=== PATIENT | female | born 1960 | race Caucasian/White ===

== ENCOUNTER 2017-02-26 10:04 | Emergency (ER) | payer OTHER ==
[~2017-02-26] VITALS: Ht 154.9 cm; Wt 68.0 kg
[~2017-02-26 10:04] MED LIST: CIPR500T4 PO; HYDR-762 PO; METR500T PO
[2017-02-26 10:07] VITALS: Ht 154.9 cm; Wt 68.0 kg
[2017-02-26] MEDS ORDERED: HYDROCODONE/APAP (5/325) TAB PO ONE (10:30)
--- NOTE | 2017-02-26 10:45 | ERD ---
ER Documentation Chief Complaint Date/Time DATE: 02/26/17 TIME: 10:40 Chief Complaint facial laceration HPI Is a 56-year-old female who presents the emergency department today for a facial laceration. Patient states that she was running to the bathroom and stated that she tripped and fell. States she is not sure what she hit her head on but that she has a headache. States she thinks she hit her head on the toilet bowl. Denies any loss of consciousness, nausea or vomiting. States she has a history of diabetes. States that her hands feel like they are "burning". Patient is a smoker. ROS All systems reviewed and are negative except as per history of present illness. Medications Home Meds Active Scripts Ibuprofen* (Motrin*) 600 Mg Tab, 600 MG PO Q6, #30 TAB Prov:NOEMI JOHN PA-C 02/26/17 Hydrocodone/Acetaminophen (Herriman 5-325 Tablet) 1 Each Tablet, 1 TAB PO Q6H Y for PAIN, #7 TAB Prov:NOEMI JOHN PA-C 02/26/17 Hydrocodone Bit-Acetaminophen* (Herriman*) 10-325 Mg Tablet, 1 TAB PO Q6 Y for PAIN , #20 TAB Prov:ANGELINA VIVEROS 06/08/15 Metronidazole* (Flagyl*) 500 Mg Tablet, 500 MG PO TID for 7 Days, TAB Prov:ANGELINA VIVEROS S. 06/08/15 Ciprofloxacin Hcl* (Ciprofloxacin Hcl*) 500 Mg Tablet, 500 MG PO BID for 7 Days , TAB Prov:ANGELINA VIVEROS 06/08/15 Allergies Allergies: Coded Allergies: No Known Allergy (Unverified , 06/07/15) PMhx/Soc History of Surgery: Yes (C-SECTIONS) Anesthesia Reaction: No Hx Neurological Disorder: No Hx Respiratory Disorders: No Hx Cardiac Disorders: Yes (HIGH CHOLESTEROL) Hx Psychiatric Problems: No Hx Miscellaneous Medical Probl: Yes (DM) Hx Alcohol Use: No Hx Substance Use: No Hx Tobacco Use: No Smoking Status: Never smoker Physical Exam Vitals Vital Signs Date Time Temp Pulse Resp B/P Pulse Ox O2 Delivery O2 Flow Rate FiO2 02/26/17 10:07 98.2 95 17 139/72 96 Physical Exam Const: NAD Head: 3 x 2 cm laceration right side of face and cheek in V shape with flap. Bleeding well controlled Eyes: Normal Conjunctiva. PERRLA. EOM intact. ENT: Normal External Ears, Nose and Mouth. No epistaxis. No hemotympanum. Tenderness palpation right side of face and mandible Neck: Full range of motion..~ No meningismus. Resp: Clear to auscultation bilaterally Cardio: Regular rate and rhythm, no murmurs Abd: Soft, non tender, non distended. Normal bowel sounds Skin: 3 x 2 cm laceration right side of face and cheek in V shape with flap. Bleeding well controlled Back: No midline or flank tenderness Ext: No cyanosis, or edema. Neur: Awake and alert Psych: Normal Mood and Affect Results 24 hrs Laboratory Tests Test 02/26/17 10:50 02/26/17 13:18 Bedside Urine pH (LAB) 5.5 Bedside Urine Protein (LAB) Negative Bedside Urine Glucose (UA) 0.50% Bedside Urine Ketones (LAB) Negative Bedside Urine Blood Trace-intact Bedside Urine Nitrite (LAB) Negative Bedside Urine Leukocyte Esterase (L Negative Bedside Glucose 289mg/dL Current Medications Medications (Trade) Dose Ordered Sig/Marino Route PRN Reason Start Time Stop Time Status Last Admin Dose Admin Acetaminophen/ Hydrocodone Bitart (Herriman (5/325)) 1 tab ONCE ONCE PO 02/26/17 10:30 02/26/17 10:32 DC 02/26/17 10:47 Lidocaine/ Epinephrine (Xylocaine 2%/ Epi (Mdv) 20 ml) 20 ml ONCE ONCE INJ 02/26/17 11:00 02/26/17 11:01 DC DIAGNOSTIC IMAGING REPORT Patient: GUNJAN FIELDS : 1960 Age: 56 Sex: F MR #: [id number] DOS: 02/26/17 0000 Ordering MD: NOEMI JOHN PA-C Location: [facility] Room/Bed: PROCEDURE: CT Brain without contrast. CLINICAL INDICATION: 56-year-old female with history of trauma; fall. TECHNIQUE: A CT of the brain was performed on a Escoto [address] scanner utilizing a low dose technique with axial imaging from the skull base through the vertex without IV contrast. Multiplanar reformatted images were made. Images were reviewed on a PACS workstation. The CTDIvol is 44 mGy and the DLP is 720 mGycm. One or more of the following dose reduction techniques were used: - Automated exposure control. - Adjustment of the mA and/or kV according to patient size. Use of iterative reconstruction technique. COMPARISON: None FINDINGS: The fourth ventricle is normal in size. The third and lateral ventricles are normal in size and configuration. The brain parenchyma is normal. The visible portions of the globes and extraocular muscles are normal. The paranasal sinuses are clear. The mastoid air cells and internal auditory canals are normal. The bony calvarium is intact. There are vascular calcifications in the cavernous and supracavernous portions of the internal carotid arteries. IMPRESSION: 1. Negative CT scan of the brain without contrast. 2. There are vascular calcifications in the cavernous and supracavernous portions of the internal carotid arteries. RPTAT:AAJJ Physician Lynn Date Time Electronically viewed and signed by Tyrone Lowe Physician on 02/26/2017 11:11 JM/ CC: NOEMI JOHN PA-C DIAGNOSTIC IMAGING REPORT Patient: GUNJAN FIELDS : 1960 Age: 56 Sex: F MR #: [id number] DOS: 02/26/17 0000 Ordering MD: NOEMI JOHN PA-C Location: [facility] Room/Bed: PROCEDURE: CT facial bones. CLINICAL INDICATION: Trauma; fall. TECHNIQUE: A CT of the facial bones was performed on a high-resolution CT scanner utilizing high-resolution axial images without contrast. Sagittal, coronal, and multiplanar reformatted images were made. Additionally, 3-D reformatted images were made. The CTDIvol is 44 mGy and the DLP is 720 mGy-cm. One or more of the following dose reduction techniques were used: - Automated exposure control. - Adjustment of the mA and/or kV according to patient size. Use of iterative reconstruction technique. COMPARISON: None. FINDINGS: There is subcutaneous emphysema associated with a laceration and soft tissue swelling lateral to the right side of the mandible. The lower medial right incisor tooth is absent. There is a apical periodontitis involving the upper right lateral incisor tooth. There are multiple dental caries. The mandible is intact. The visible cervical vertebra are intact. There are degenerative changes in the cervical spine. The pterygoid plates and zygomatic arches are intact. The nasal bones are intact. The nasal septum and nasal turbinates are normal. The globes and extraocular muscles are normal. The paranasal sinuses are clear. The intrinsic musculature of the tongue and submandibular glands are unremarkable. The epiglottis and glossoepiglottic fold are normal. The parapharyngeal vascular spaces are normal. The parotid glands are normal as visualized. The base of the skull and mastoid air cells are clear. The globes and extraocular muscles are normal. The optic nerves are symmetric. The orbital rims are intact. The visible portions of the brain parenchyma are normal. There is some soft tissue swelling adjacent to the right frontal bone. IMPRESSION: 1. There is subcutaneous emphysema soft tissue swelling on the right side of the mandible. No acute mandibular fracture is identified. 2. Patient's missing several teeth and has multiple dental caries. There is periapical periodontitis involving the upper right lateral incisor tooth. 3. Osteoarthritis of the cervical spine. 4. No acute facial fracture is identified. RPTAT:AAJJ Physician Lynn Date Time Electronically viewed and signed by Physician Lynn on 02/26/2017 11:22 JM/ CC: NOEMI JOHN PA-C DIAGNOSTIC IMAGING REPORT Patient: GUNJAN FIELDS : 1960 Age: 56 Sex: F MR #: [id number] DOS: 02/26/17 0000 Ordering MD: NOEMI JOHN PA-C Location: [facility] Room/Bed: PROCEDURE: XR bilateral hands. CLINICAL INDICATION: Trauma due to a fall. Bilateral hand pain. TECHNIQUE: Three views of each hand. Frontal, lateral, and oblique images of the right and left hand were obtained. Total of 6 views. COMPARISON: No prior studies are available for comparison. FINDINGS: There is no fracture or dislocation. The soft tissues are normal. Articular surfaces are intact. There is no lytic or blastic lesion. There is no radiopaque foreign body. IMPRESSION: 1. Unremarkable images of the right and left hand. RPTAT: QQ .Paul Rodrigez MD, Date Time Electronically viewed and signed by .Paul Rodrigez MD, MD on 02/26/2017 13:28 .R/ CC: NOEMI JOHN PA-C DIAGNOSTIC IMAGING REPORT Patient: GUNJAN FIELDS : 1960 Age: 56 Sex: F MR #: [id number] DOS: 02/26/17 0000 Ordering MD: NOEMI JOHN PA-C Location: [facility] Room/Bed: PROCEDURE: CT Cervical Spine without contrast. CLINICAL INDICATION: trauma, fall TECHNIQUE: Multiple axial cuts at 2 mm intervals through the cervical spine with coronal and sagittal reformats were obtained without contrast. COMPARISON: No prior studies are available for comparison. FINDINGS: The mastoid air cells are clear. The base of the skull, C1 and C2 are intact. There are degenerative changes around the atlanto-axial joint. C2-3: The intervertebral disk space neural canal and nerve root foramina are normal. No disk bulge or herniations identified. The articular facets and C2 spinous process are normal. A ventral osteophyte is noted off the inferior endplate of C3. C3 is intact. C3-4: There is ventral spondylosis. There is a mild midline disk bulge. The neural canal and nerve root foramina are unremarkable. The articular facets are normal. C4 is intact. C4-5: There is a bony right nerve root canal stenosis. There is ventral spondylosis with disk space narrowing. A 2.9 mm AP disk osteophyte complex narrows the right nerve root canal resulting in a bony right C4-5 nerve root canal stenosis. The left nerve root canal is unremarkable. C5 is intact. C5-6: There is ventral spondylosis with disk space narrowing. There is a 3.5 mm AP dorsal disk osteophyte complex. There are small bony osteophytes causing mild narrowing of the left nerve root canal. The right nerve root canal is normal. C6 is intact. There are ventral osteophytes off of C6. C6-7: There is disk space narrowing and ventral spondylosis. There is a mild central and paracentral 2.6 mm AP disk osteophyte complex. The nerve root foramina are patent bilaterally. The articular facets are normal. C7 is intact. C7-T1: There is ventral spondylosis with mild disk space narrowing. The neural canal and nerve root foramina are unremarkable. There are ventral osteophytes off of T1. T1 is intact. The other visible thoracic vertebra intact. A 3.5 mm AP central and paracentral disk osteophyte complex is noted at T1-2. A 3.2 mm AP central disk osteophyte complex is noted at C2-3. The ribs are intact. The great vessels of the superior mediastinum are normal. The pulmonary vasculature and lung ayala are normal. The thyroid gland and vocal cords are normal. The piriform sinuses, submandibular glands and intrinsic musculature of the tongue are normal. The parotid glands are unremarkable. No enlarged cervical lymph nodes are identified. IMPRESSION: 1. Osteoarthritis of the cervical spine. 2. No evidence of acute cervical spine fracture or cervical instability. Physician Lynn Date Time Electronically viewed and signed by Physician Lynn on 02/26/2017 13:31 VU/ CC: NOEMI JOHN PA-C/[facility] This 56-year-old female who presents the emergency department today for right- sided facial laceration and a headache after sustaining a fall earlier today. Patient indicated that she has running to the bathroom when she thinks that she tripped and fell however patient was somewhat unsure what she hit her face on or what exactly happened. She denied any loss of consciousness however given patient's age and headache and facial trauma I did obtain a head CT and facial bone CT as well as an Accu-Chek and EKG given patient's complaints of numbness and tingling in her fingers and swelling EKG read and interpreted by Dr. Byrne. Rate [address] elevation. No QT prolongation. Normal sinus rhythm however cannot rule out anterior infarct of age undetermined. No evidence of acute NM. PE, pericarditis UA shows glucose otherwise negative for infection Accu-Chek is [address] noncontrast is negative. However does show vascular calcifications in the cavernous and supracavernous portions of the internal carotid arteries Facial bone CT shows subcutaneous emphysema soft tissue swelling the right side of mandible. There is no acute mandibular fracture. Patient is missing several teeth and has multiple dental caries. There is periapical periodontitis. There is osteoarthritis of the cervical spine. There is no acute facial fracture identified. Cervical spine CT shows osteoarthritis. There is no evidence of acute cervical spine fracture or instability. Patient was continued to complain of bilateral pain tingling and swelling and therefore I ordered bilateral hand images that were unremarkable. There is no acute fracture or dislocation. Patient is tingling in her fingers may be related to diabetic neuropathy versus degenerative disc disease in her neck. I have explained this to the patient. Patient was given Herriman here in the emergency department. I did explain to the patient that she was going to need sutures on her face. Explained the risks and benefits of the procedure and patient agreed to proceed. Patient tolerated the procedure well and there were no complications. The wound was cleaned in the usual sterile fashion. Laceration Repair by me: Anesthesia: 1% lidocaine with epi locally 3 cc Location: Right side of face/cheek Tendon/Joint/Nerves: No injury Foreign body: None detected after copious irrigation and exploration Technique: 10 simple Interrupted Sutures 6-0 Ethilon Complexity: No subcutaneous sutures/mucosal repair/ edge excision Post Closure Length: 6 cm Patient's bleeding was easily controlled in the department and there is no indication of anemia. No evidence of compartment syndrome, neurologic injury, vascular injury, open joint, tendon laceration, or foreign body. Patient is appropriate for outpatient follow up. 48 hour wound check. Scar minimization instructions given. She will be given a prescription for Herriman, Motrin. Wound check in 48 hours. Suture removal in 5-7 days per At this time the patient is stable for discharge and outpatient management. Patient should follow up with their PCP in the next 1-2 days. They may return to the emergency department sooner for any persistent or worsening of symptoms. Patient and daughter understood and agreed with the plan. Discussed the patient with Dr. Byrne and he is in agreement with the plan. Departure Diagnosis: Primary Impression: Laceration Additional Impression: Fall Encounter type: initial encounter Qualified Code: W19.XXXA - Fall, initial encounter Condition: Fair NOEMI JOHN PA-C February 26, 2017 10:45
[2017-02-26 10:49] LABS: URINE BLOOD (Dip) POC Trace-intact (NEGATIVE)
[2017-02-26] MEDS ORDERED: LIDOCAINE 2%/EPI (MDV) 20ML INJ INJ ONE (11:00)
--- NOTE | 2017-02-26 11:11 | RADRPT ---
PROCEDURE: CT Brain without contrast. CLINICAL INDICATION: 56-year-old female with history of trauma; fall. TECHNIQUE: A CT of the brain was performed on a Escoto [address] scanner utilizing a low do se technique with axial imaging from the skull base through the vertex without IV contrast. Multipl hesham reformatted images were made. Images were reviewed on a PACS workstation. The CTDIvol is 44 m Gy and the DLP is 720 mGycm. One or more of the following dose reduction techniques were used: - Automated exposure control. - Adjustment of the mA and/or kV according to patient size. Use of iterative reconstruction technique. COMPARISON: None FINDINGS: The fourth ventricle is normal in size. The third and lateral ventricles are normal in size and con figuration. The brain parenchyma is normal. The visible portions of the globes and extraocular muscles are normal. The paranasal sinuses are cl ear. The mastoid air cells and internal auditory canals are normal. The bony calvarium is intact. There are vascular calcifications in the cavernous and supracavernous portions of the internal carot id arteries. IMPRESSION: 1. Negative CT scan of the brain without contrast. 2. There are vascular calcifications in the cavernous and supracavernous portions of the internal ca rotid arteries. RPTAT:AAJJ Physician Lynn Date Time Electronically viewed and signed by Physician Lynn on 02/26/2017 11:11 VU/
--- NOTE | 2017-02-26 11:22 | RADRPT ---
PROCEDURE: CT facial bones. CLINICAL INDICATION: Trauma; fall. TECHNIQUE: A CT of the facial bones was performed on a high-resolution CT scanner utilizing high-r esolution axial images without contrast. Sagittal, coronal, and multiplanar reformatted images were made. Additionally, 3-D reformatted images were made. The CTDIvol is 44 mGy and the DLP is 720 mGy -cm. One or more of the following dose reduction techniques were used: - Automated exposure control. - Adjustment of the mA and/or kV according to patient size. Use of iterative reconstruction technique. COMPARISON: None. FINDINGS: There is subcutaneous emphysema associated with a laceration and soft tissue swelling lateral to the right side of the mandible. The lower medial right incisor tooth is absent. There is a apical jenny odontitis involving the upper right lateral incisor tooth. There are multiple dental caries. The m andible is intact. The visible cervical vertebra are intact. There are degenerative changes in the cervical spine. The pterygoid plates and zygomatic arches are intact. The nasal bones are intact. The nasal septum and nasal turbinates are normal. The globes and extraocular muscles are normal. The paranasal sinuses are clear. The intrinsic musculature of the tongue and submandibular glands are unremarkable. The epiglottis a nd glossoepiglottic fold are normal. The parapharyngeal vascular spaces are normal. The parotid gla nds are normal as visualized. The base of the skull and mastoid air cells are clear. The globes and extraocular muscles are normal . The optic nerves are symmetric. The orbital rims are intact. The visible portions of the brain p arenchyma are normal. There is some soft tissue swelling adjacent to the right frontal bone. IMPRESSION: 1. There is subcutaneous emphysema soft tissue swelling on the right side of the mandible. No acut e mandibular fracture is identified. 2. Patient's missing several teeth and has multiple dental caries. There is periapical periodonti tis involving the upper right lateral incisor tooth. 3. Osteoarthritis of the cervical spine. 4. No acute facial fracture is identified. RPTAT:AAJJ Tyrone Lowe, Physician Date Time Electronically viewed and signed by Tyrone Lowe, Physician on 02/26/2017 11:22 VU/
--- NOTE | 2017-02-26 13:29 | RADRPT ---
PROCEDURE: XR bilateral hands. CLINICAL INDICATION: Trauma due to a fall. Bilateral hand pain. TECHNIQUE: Three views of each hand. Frontal, lateral, and oblique images of the right and left h and were obtained. Total of 6 views. COMPARISON: No prior studies are available for comparison. FINDINGS: There is no fracture or dislocation. The soft tissues are normal. Articular surfaces are intact. There is no lytic or blastic lesion. There is no radiopaque foreign body. IMPRESSION: 1. Unremarkable images of the right and left hand. RPTAT: QQ .Paul Rodrigez MD, MD Date Time Electronically viewed and signed by .Paul Rodrigez MD, on 02/26/2017 13:28 .R/
--- NOTE | 2017-02-26 13:32 | RADRPT ---
PROCEDURE: CT Cervical Spine without contrast. CLINICAL INDICATION: trauma, fall TECHNIQUE: Multiple axial cuts at 2 mm intervals through the cervical spine with coronal and sagit maryam reformats were obtained without contrast. COMPARISON: No prior studies are available for comparison. FINDINGS: The mastoid air cells are clear. The base of the skull, C1 and C2 are intact. There are degenerati ve changes around the atlanto-axial joint. C2-3: The intervertebral disk space neural canal and nerve root foramina are normal. No disk bulge or herniations identified. The articular facets and C2 spinous process are normal. A ventral osteo phyte is noted off the inferior endplate of C3. C3 is intact. C3-4: There is ventral spondylosis. There is a mild midline disk bulge. The neural canal and nerve root foramina are unremarkable. The articular facets are normal. C4 is intact. C4-5: There is a bony right nerve root canal stenosis. There is ventral spondylosis with disk space narrowing. A 2.9 mm AP disk osteophyte complex narrows the right nerve root canal resulting in a b angel right C4-5 nerve root canal stenosis. The left nerve root canal is unremarkable. C5 is intact. C5-6: There is ventral spondylosis with disk space narrowing. There is a 3.5 mm AP dorsal disk ost eophyte complex. There are small bony osteophytes causing mild narrowing of the left nerve root can al. The right nerve root canal is normal. C6 is intact. There are ventral osteophytes off of C6. C6-7: There is disk space narrowing and ventral spondylosis. There is a mild central and paracentr al 2.6 mm AP disk osteophyte complex. The nerve root foramina are patent bilaterally. The articula r facets are normal. C7 is intact. C7-T1: There is ventral spondylosis with mild disk space narrowing. The neural canal and nerve root foramina are unremarkable. There are ventral osteophytes off of T1. T1 is intact. The other visible thoracic vertebra intact. A 3.5 mm AP central and paracentral disk osteophyte com plex is noted at T1-2. A 3.2 mm AP central disk osteophyte complex is noted at C2-3. The ribs are intact. The great vessels of the superior mediastinum are normal. The pulmonary vascu lature and lung ayala are normal. The thyroid gland and vocal cords are normal. The piriform sinuses, submandibular glands and intrin sic musculature of the tongue are normal. The parotid glands are unremarkable. No enlarged cervica l lymph nodes are identified. IMPRESSION: 1. Osteoarthritis of the cervical spine. 2. No evidence of acute cervical spine fracture or cervical instability. Physician Lynn Date Time Electronically viewed and signed by Tyrone Lowe Physician on 02/26/2017 13:31 VU/
[2017-02-26] MEDS ORDERED: IBUP-1542 PO (13:58)
[2017-02-26] MEDS ORDERED: HYDR-906 PO (13:58)
== END 2017-02-26 14:17 | disposition home or self-care (01) ==
LOC: FTE 10:04
DX: S01.81XA Laceration without foreign body of other part of head, initial encounter (principal); E11.9 Type 2 diabetes mellitus without complications; R51 Headache; F17.210 Nicotine dependence, cigarettes, uncomplicated; M79.642 Pain in left hand; W01.0XXA Fall on same level from slipping, tripping and stumbling without subsequent striking against object, initial encounter; Y92.9 Unspecified place or not applicable
CPT/HCPCS: 12014; 70450; 70486; 72125; 73130; 81003; 82962; 93005; Z7502; Z7610

== ENCOUNTER 2017-02-28 08:50 | Emergency (ER) | payer OTHER ==
[~2017-02-28] VITALS: Wt 65.0 kg
[~2017-02-28 08:50] MED LIST changes: +HYDR-906 PO; +IBUP-1542 PO
--- NOTE | 2017-02-28 09:25 | ERD ---
ER Documentation Chief Complaint Date/Time DATE: 02/28/17 TIME: 09:22 Chief Complaint RIGHT SIDE FACIAL WOUND RECHECK . ONSET ABOUT 3 DAYS HPI This 56-year-old female who presents the emergency department today for a wound check of a laceration she sustained 2 days ago after a fall in the bathroom. Patient states she is taking her antibiotics as prescribed. Denies any fevers or chills. ROS All systems reviewed and are negative except as per history of present illness. Medications Home Meds Active Scripts Ibuprofen* (Motrin*) 600 Mg Tab, 600 MG PO Q6, #30 TAB Prov:NOEMI JOHN PA-C 02/26/17 Hydrocodone/Acetaminophen (Newberry 5-325 Tablet) 1 Each Tablet, 1 TAB PO Q6H Y for PAIN, #7 TAB Prov:NOEMI JOHN PA-C 02/26/17 Hydrocodone Bit-Acetaminophen* (Newberry*) 10-325 Mg Tablet, 1 TAB PO Q6 Y for PAIN , #20 TAB Prov:ANGELINA VIVEROS 06/08/15 Metronidazole* (Flagyl*) 500 Mg Tablet, 500 MG PO TID for 7 Days, TAB Prov:ANGELINA VIVEROS S. 06/08/15 Ciprofloxacin Hcl* (Ciprofloxacin Hcl*) 500 Mg Tablet, 500 MG PO BID for 7 Days , TAB Prov:ANGELINA VIVEROS 06/08/15 Allergies Allergies: Coded Allergies: No Known Allergy (Unverified , 06/07/15) PMhx/Soc History of Surgery: Yes (C-SECTIONS) Anesthesia Reaction: No Hx Neurological Disorder: No Hx Respiratory Disorders: No Hx Cardiac Disorders: Yes (HIGH CHOLESTEROL) Hx Psychiatric Problems: No Hx Miscellaneous Medical Probl: Yes (DM) Hx Alcohol Use: No Hx Substance Use: No Hx Tobacco Use: No Physical Exam Vitals Vital Signs Date Time Temp Pulse Resp B/P Pulse Ox O2 Delivery O2 Flow Rate FiO2 02/28/17 08:56 98.4 84 21 110/60 95 Physical Exam Const: No acute distress Head: Evidence of 10 sutures placed right side of face. No erythema or warmth. No purulent drainage. Eyes: Normal Conjunctiva ENT: Normal External Ears, Nose and Mouth. Neck: Full range of motion..~ No meningismus. Resp: Clear to auscultation bilaterally Cardio: Regular rate and rhythm, no murmurs Skin: Evidence of 10 sutures placed right side of face. No erythema or warmth. No purulent drainage. Neur: Awake and alert Psych: Normal Mood and Affect Procedures/MDM This 56-year-old female who presents the emergency department today for wound check of a laceration she sustained 2 days ago after a fall in the bathroom. I see this patient back in follow-up today after applying 10 sutures to the right to the patient's face. Patient is afebrile and otherwise well-appearing. She has been taking her antibiotics. Wound appears to be healing well and is well approximated. There is no erythema or warmth. There is no purulent drainage. Patient was instructed to return in 3-5 days for suture removal. She was instructed to continue taking her antibiotics as prescribed. Patient was again instructed to stop smoking cigarettes. At this time the patient is stable for discharge and outpatient management. Patient should follow up with their PCP in the next 1-2 days. They may return to the emergency department sooner for any persistent or worsening of symptoms. Patient understood and agreed with the plan. Departure Diagnosis: Primary Impression: Encounter for wound re-check Condition: Fair Patient Instructions: Wound Check, Lac F/U (No Infection) Referrals: your PCP Additional Instructions: Llame al doctor LENARD y rachel larry PJ PARA DENTRO DE 1-2 SU.Dgale a la secretaria que nosotros le instruimos hacer esta pj.Avise o llame si meléndez condicin se empeora antes de la pj. Regresa aqui si peor o no mejor. Keep wound clean and dry Continue taking antibiotics as prescribed Suture removal in 3-5 days NOEMI JOHN PA-C February 28, 2017 09:25
== END 2017-02-28 09:28 | disposition home or self-care (01) ==
LOC: FTE 08:50
DX: Z48.01 Encounter for change or removal of surgical wound dressing (principal); E11.9 Type 2 diabetes mellitus without complications
CPT/HCPCS: 99281

== ENCOUNTER 2017-03-04 19:37 | Emergency (ER) | payer SELFPAY ==
[2017-03-05] MEDS ORDERED: BACITUD TOP (11:47)
== END 2017-03-04 19:58 | disposition left against medical advice (07) ==
LOC: E/R 19:37
DX: Z53.21 Procedure and treatment not carried out due to patient leaving prior to being seen by health care provider (principal)

== ENCOUNTER 2017-03-05 11:07 | Emergency (ER) | payer OTHER ==
[~2017-03-05] VITALS: Ht 165.1 cm; Wt 74.0 kg
[2017-03-05 11:12] VITALS: Ht 165.1 cm; Wt 74.0 kg
[2017-03-05] MEDS ORDERED: BACITUD TOP (11:47)
--- NOTE | 2017-03-05 12:40 | ERD ---
ER Documentation Chief Complaint Date/Time DATE: 03/05/17 TIME: 12:33 Chief Complaint suture removal from face HPI 56 year old female patient with no significant past medical history presents to the ED for a suture removal for a facial laceration she sustained about 7 days ago. She initially was running in the bathroom and stated that she tripped and fell. States that she hit her head but denies any loss of consciousness. Denies any headache, nausea, vomiting, dizziness, fever, numbness or tingling. ROS All systems reviewed and are negative except as per history of present illness. Medications Home Meds Active Scripts Bacitracin* (Bacitracin Oint (UD)*) 1 Applic Oint, 1 APPLIC TOP ONCE, #10 PKT APPLY TO Prov:CONCHITA WILLARD PA-C 03/05/17 Ibuprofen* (Motrin*) 600 Mg Tab, 600 MG PO Q6, #30 TAB Prov:NOEMI JOHN PA-C 02/26/17 Hydrocodone/Acetaminophen (Baker 5-325 Tablet) 1 Each Tablet, 1 TAB PO Q6H Y for PAIN, #7 TAB Prov:NOEMI JOHN PA-C 02/26/17 Hydrocodone Bit-Acetaminophen* (Baker*) 10-325 Mg Tablet, 1 TAB PO Q6 Y for PAIN , #20 TAB Prov:ANGELINA VIVEROS 06/08/15 Metronidazole* (Flagyl*) 500 Mg Tablet, 500 MG PO TID for 7 Days, TAB Prov:ANGELINA VIVEROS 06/08/15 Ciprofloxacin Hcl* (Ciprofloxacin Hcl*) 500 Mg Tablet, 500 MG PO BID for 7 Days , TAB Prov:ANGELINA VIVEROS 06/08/15 Allergies Allergies: Coded Allergies: No Known Allergy (Unverified , 02/28/17) PMhx/Soc History of Surgery: Yes (C-SECTIONS) Anesthesia Reaction: No Hx Neurological Disorder: No Hx Respiratory Disorders: No Hx Cardiac Disorders: Yes (HIGH CHOLESTEROL) Hx Psychiatric Problems: No Hx Miscellaneous Medical Probl: Yes (DM) Hx Alcohol Use: No Hx Substance Use: No Hx Tobacco Use: No Physical Exam Vitals Vital Signs Date Time Temp Pulse Resp B/P Pulse Ox O2 Delivery O2 Flow Rate FiO2 03/05/17 11:12 98.4 88 18 164/72 98 Physical Exam Const: [id number], well-nourished. In no acute distress. Head: Atraumatic, normocephalic Eyes: Normal Conjunctiva without injection. No purulent discharge. PERRLA. EOMI ENT: Normal external ear. Ear canal without erythema. Tympanic membrane pearly buck without effusion or bulging. Nasal canal clear with normal turbinates. Moist oropharynx without tonsillar exudates. Non-erythematous pharynx. Uvula midline. No drooling. No trismus. Neck: No cervical midline tenderness. Full range of motion. No meningismus. No cervical lymphadenopathy. No JVD. Resp: Clear to auscultation bilaterally. No wheezing, rhonchi, rales, or crackles. No accessory muscle use. No retractions. Cardio: Regular rate and rhythm. No murmurs, rubs or gallops. Skin: Normal skin turgor. No petechiae or rashes. 5 cm total U shaped laceration noted on the right side of her face about no surrounding edema, purulent discharge. No edema. Ext: No cyanosis, or edema. Distal pulses intact bilaterally. Neur: Awake and alert. Normal gait. Normal coordination. Cranial Nerves II-VII intact. Normal finger to nose. Muscle strength 5/5. Sensation intact. Psych: Normal Mood and Affect Procedures/MDM 56-year-old female patient with no significant past medical history presents the ED for a suture removal of a laceration on the right side of her face. Patient is afebrile and nontoxic-appearing. Patient has normal vital signs. 10 sutures were removed of the U-shaped laceration noted on the right side of her cheek. No signs of dehiscence. No deep space infection noted. No evidence of cellulitis or sepsis. Low suspicion for intracranial bleed, subarachnoid hemorrhage, meningitis, TIA, stroke, subdural hematoma, epidural hematoma, or other emergent conditions. Discharge medications: Bacitracin Follow up with primary care physician in 1-2 days. Instructed patient to return to the ED sooner for any worsening symptoms. Patient's questions were answered. Patient understood and agreed with discharge plan. Patient discharged stable. Departure Diagnosis: Primary Impression: Encounter for removal of sutures Condition: Stable Patient Instructions: Suture Removal, No Complication, Wound Care Referrals: [facility] Usted se read hecho un examen mdico de control que le indica que no est en larry condicin que requiera tratamiento urgente en el Departamento de Emergencia. Un estudio ms profundo y el tratamiento de meléndez condicin pueden esperar sin ningn riesgo hasta que usted sea atendida/o en el consultorio de meléndez mdico o larry cl ilsa. Es responsabilidad suya arreglar larry pj para el seguimiento del marino. MANEJO DE CONDICIONES NO URGENTES EN EL FUTURO 1) Si usted tiene un mdico de atencin primaria: Usted debera llamar a meléndez mdico de atencin primaria antes de venir al departamento de emergencia. Despus de las horas de consultorio, meléndez doctor o meléndez asociado/a est disponible por telfono. El mdico o enfermero de sveta en el servicio telefnico puede asesorarle por ellie medio para atender el problema, o marino contrario se puede programar larry pj. 2) Si usted no tiene un mdico de atencin primaria: Llame al mdico o clnica de referencia que aparece abajo angélica las horas de consultorio para hacer larry pj para que le vean. CLINICAS: [facility] [id number] [facility] [phone] [facility] [phone] [address] [facility]. [facility] [phone] [address] [facility]. [place] [id number] [phone] [facility]. [phone] [address] [facility]. [facility] ([place]) Usted se read hecho un examen mdico de control que le indica que no est en larry condicin que requiera tratamiento urgente en el Departamento de Emergencia. Un estudio ms profundo y el tratamiento de meléndez condicin pueden esperar sin ningn riesgo hasta que usted sea atendida/o en el consultorio de meléndez mdico o larry cl ilsa. Es responsabilidad suya arreglar larry pj para el seguimiento del marino. MANEJO DE CONDICIONES NO URGENTES EN EL FUTURO 1) Si usted tiene un mdico de atencin primaria: Usted debera llamar a meléndez mdico de atencin primaria antes de venir al departamento de emergencia. Despus de las horas de consultorio, meléndez doctor o meléndez asociado/a est disponible por telfono. El mdico o enfermero de sveta en el servicio telefnico puede asesorarle por ellie medio para atender el problema, o marino contrario se puede programar larry pj. 2) Si usted no tiene un mdico de atencin primaria: Llame al mdico o condado institucions de referencia que aparece abajo angélica las horas de consultorio para hacer larry pj para que le vean. SI USTED NO PUEDE PAGAR PARA KRISTINA UN MEDICO puede ir a: [facility] [address] [place] [address] [facility] [address] [place] [address] [facility] [address] [place] [address] [facility] [address] [place], [place] [id number] Additional Instructions: Llame al doctor MAANA y rachel larry PJ PARA DENTRO DE 2-3 SU.Dgale a la secretaria que nosotros le instruimos hacer esta pj.Avise o llame si meléndez condicin se empeora antes de la pj. Regresa aqui si peor o no mejor. CONCHITA WILLARD PA-C March 05, 2017 12:40
== END 2017-03-05 16:28 | disposition home or self-care (01) ==
LOC: FTE 11:07
DX: Z48.02 Encounter for removal of sutures (principal); E11.9 Type 2 diabetes mellitus without complications
CPT/HCPCS: 99283

== ENCOUNTER 2017-06-18 23:49 | Emergency (ER) | payer OTHER ==
[~2017-06-18] VITALS: Ht 154.9 cm; Wt 69.5 kg
[~2017-06-18 23:49] MED LIST changes: +BACITUD TOP
[2017-06-19 00:48] VITALS: Ht 154.9 cm; Wt 69.5 kg
[2017-06-19] MEDS ORDERED: IBUP-1542 PO (02:00)
[2017-06-19] MEDS ORDERED: ACYC800T57 PO (02:00)
[2017-06-19] MEDS ORDERED: CLOT30CR24 TOP (02:00)
[2017-06-19 02:18] VITALS: BP 121/57; PULSE 78; RESP 16; TEMP 98.7
--- NOTE | 2017-06-19 04:54 | ERD ---
ER Documentation Chief Complaint Date/Time DATE: 06/19/17 TIME: 04:52 Chief Complaint pain/redness along her lower abdominal folds x 2 days, hx DM HPI 56-year-old female with history of diabetes presents with a painful erythematous rash in her abdominal fold on the left side for the past 5 days. Patient states it is burning, very painful, and not improving with a cream from [place]. She states that it is in the fold, where her scar is from many years ago, and she has not been able to see it because of the location of it. She has not had any fevers or chills, nausea, vomiting. She denies any headaches. ROS All systems reviewed and are negative except as per history of present illness. Medications Home Meds Active Scripts Ibuprofen* (Motrin*) 600 Mg Tab, 600 MG PO Q6, #30 TAB Prov:LORI BRAVO PA-C 06/19/17 Clotrimazole* (Clotrimazole* AF) 1% - 30 Gm Cream.gm., 1 APPLIC TOP BID for 7 Days, TUB Prov:LORI BRAVO PA-C 06/19/17 Acyclovir* (Zovirax*) 800 Mg Tablet, 800 MG PO 5 TIMES DAILY for 7 Days, TAB Prov:LORI BRAVO PA-C 06/19/17 Bacitracin* (Bacitracin Oint (UD)*) 1 Applic Oint, 1 APPLIC TOP ONCE, #10 PKT APPLY TO Prov:CONCHITA WILLARD PA-C 03/05/17 Ibuprofen* (Motrin*) 600 Mg Tab, 600 MG PO Q6, #30 TAB Prov:NOEMI JOHN PA-C 02/26/17 Hydrocodone/Acetaminophen ([place] 5-325 Tablet) 1 Each Tablet, 1 TAB PO Q6H Y for PAIN, #7 TAB Prov:NOEMI JOHN PA-C 02/26/17 Hydrocodone Bit-Acetaminophen* ([place]*) 10-325 Mg Tablet, 1 TAB PO Q6 Y for PAIN , #20 TAB Prov:ANGELINA VIVEROS 06/08/15 Metronidazole* (Flagyl*) 500 Mg Tablet, 500 MG PO TID for 7 Days, TAB Prov:ANGELINA VIVEROS 06/08/15 Ciprofloxacin Hcl* (Ciprofloxacin Hcl*) 500 Mg Tablet, 500 MG PO BID for 7 Days , TAB Prov:ANGELINA VIVEROS 06/08/15 Allergies Allergies: Coded Allergies: No Known Allergy (Unverified , 02/28/17) PMhx/Soc History of Surgery: No Anesthesia Reaction: No Hx Neurological Disorder: No Hx Respiratory Disorders: No Hx Cardiac Disorders: Yes (HTN, high cholesterol) Hx Psychiatric Problems: No Hx Miscellaneous Medical Probl: Yes (dm2, chronic back pain) Hx Alcohol Use: No Hx Substance Use: No Hx Tobacco Use: Yes Smoking Status: Current every day smoker Physical Exam Vitals Vital Signs Date Time Temp Pulse Resp B/P Pulse Ox O2 Delivery O2 Flow Rate FiO2 06/19/17 02:18 98.7 78 16 121/57 97 Room Air 06/19/17 00:48 97.5 81 18 138/64 96 Physical Exam General: Well-developed, well-nourished. The patient appears in no acute distress. HEENT: Head is normocephalic, atraumatic. No scleral icterus. Pupils are equal , round, and reactive. Oral mucous membranes are moist. No pharyngeal erythema. Neck: Supple. Nontender. Lungs: Clear to auscultation. Normal air movement. Heart: Regular rate and rhythm. S1 and S2 are normal. No murmurs, gallops, or rubs. Abdomen: Soft, there is an erythematous slightly blistered rash on the left abdomen in the abdominal fold, there is no drainage, no evidence of cellulitis, nondistended. Bowel sounds are normoactive. Extremities: No clubbing or cyanosis. Normal pulses. Moving extremities x 4. No weakness. Neurologic: Alert and oriented 3. No focal deficits. Skin: Normal turgor. No rash or lesions. Procedures/MDM 56-year-old female presents with a painful blistering rash on her abdomen, she has had this for approximately 5 days. She is not able to visualize area due to the location and is in the fold of where the scar is. There is evidence of a blistering erythematous rash, consider shingles based on the presentation and history of burning pain. She does not recall if there were any vesicles prior. Given the location, she will also be treated for a fungal infection. Departure Diagnosis: Primary Impression: Rash Condition: Good Patient Instructions: Dermatitis, Non-Specific SHELLY, LORI PA-C Jun 19, 2017 04:54
== END 2017-06-19 02:20 | disposition home or self-care (01) ==
LOC: FTE 23:49
DX: R21 Rash and other nonspecific skin eruption (principal); E11.9 Type 2 diabetes mellitus without complications; I10 Essential (primary) hypertension; F17.210 Nicotine dependence, cigarettes, uncomplicated
CPT/HCPCS: 99283

== ENCOUNTER 2017-08-12 14:40 | Emergency (ER) | payer OTHER ==
[~2017-08-12] VITALS: Ht 152.4 cm; Wt 68.5 kg
[~2017-08-12 14:40] MED LIST changes: +ACYC800T57 PO; +CLOT30CR24 TOP
[2017-08-12 14:42] VITALS: Ht 152.4 cm; Wt 68.5 kg
[2017-08-12] MEDS ORDERED: ALBUTEROL 0.083% (NEB) 2.5 MG/3 ML AMP NEB STA (16:25)
[2017-08-12] MEDS ORDERED: IPRATROPIUM (NEB) 0.5 MG/2.5 ML AMP NEB STA (16:25)
--- NOTE | 2017-08-12 16:28 | ERD ---
ER Documentation Chief Complaint Chief Complaint This 57-year-old female comes to emergency department for complaint of cough cough x 1 wk ,sore throat with decreased appetite . HPI This 57-year-old female presents to emergency department for evaluation of cough , sore throat, wheezing at night, shortness of breath, and decreased appetite. , she smokes 1 pk of cigarettes a day for the last 3 months, denies CP, palpitations dizziness, fever, chills ROS All systems reviewed and are negative except as per history of present illness. Medications Home Meds Active Scripts Ibuprofen* (Motrin*) 600 Mg Tab, 600 MG PO Q6, #30 TAB Prov:LORI BRAVO PA-C 06/19/17 Clotrimazole* (Clotrimazole* AF) 1% - 30 Gm Cream.gm., 1 APPLIC TOP BID for 7 Days, TUB Prov:LORI BRAVO PA-C 06/19/17 Acyclovir* (Zovirax*) 800 Mg Tablet, 800 MG PO 5 TIMES DAILY for 7 Days, TAB Prov:LORI BRAVO PA-C 06/19/17 Bacitracin* (Bacitracin Oint (UD)*) 1 Applic Oint, 1 APPLIC TOP ONCE, #10 PKT APPLY TO Prov:CONCHITA WILLARD PA-C 03/05/17 Ibuprofen* (Motrin*) 600 Mg Tab, 600 MG PO Q6, #30 TAB Prov:NOEMI JOHN PA-C 02/26/17 Hydrocodone/Acetaminophen (Ackerly 5-325 Tablet) 1 Each Tablet, 1 TAB PO Q6H Y for PAIN, #7 TAB Prov:NOEMI JOHN PA-C 02/26/17 Hydrocodone Bit-Acetaminophen* (Ackerly*) 10-325 Mg Tablet, 1 TAB PO Q6 Y for PAIN , #20 TAB Prov:ANGELINA VIVEROS. 06/08/15 Metronidazole* (Flagyl*) 500 Mg Tablet, 500 MG PO TID for 7 Days, TAB Prov:ANGELINA VIVEROS S. 06/08/15 Ciprofloxacin Hcl* (Ciprofloxacin Hcl*) 500 Mg Tablet, 500 MG PO BID for 7 Days , TAB Prov:ANGELINA VIVEROS 06/08/15 Allergies Allergies: Coded Allergies: No Known Allergy (Unverified , 02/28/17) PMhx/Soc History of Surgery: No Anesthesia Reaction: No Hx Neurological Disorder: No Hx Respiratory Disorders: No Hx Cardiac Disorders: Yes (HTN, high cholesterol) Hx Psychiatric Problems: No Hx Miscellaneous Medical Probl: Yes (dm2, chronic back pain) Hx Alcohol Use: No Hx Substance Use: No Hx Tobacco Use: Yes Physical Exam Vitals Vital Signs Date Time Temp Pulse Resp B/P Pulse Ox O2 Delivery O2 Flow Rate FiO2 08/12/17 16:42 99 22 94 21 08/12/17 14:42 98.8 99 22 142/65 Vitals stable, triage notes reviewed, oxygen saturation 94% on room air. Physical Exam Const: Well-nourished well-appearing well-hydrated 57-year-old female in no acute distress Head: Eyes: Normal Conjunctiva, PERRLA, EOMI ENT: Panic membranes translucent, nasal mucosa dry, pharynx pink, tongue midline Neck: Full range of motion..~ No meningismus. Resp: Respirations even and unlabored, shallow, poor air movement, diminished bases Cardio: Regular rate and rhythm, no murmurs Abd: Soft, non tender, non distended. Skin: No petechiae or rashes Back: Ext: Neur: Awake and alert Psych: Normal Mood and Affect Results 24 hrs Current Medications Medications (Trade) Dose Ordered Sig/Marino Route PRN Reason Start Time Stop Time Status Last Admin Dose Admin Albuterol (Proventil 0.083% (Neb)) 5 mg ONCE STAT NEB 08/12/17 16:25 08/12/17 16:29 DC 08/12/17 16:42 Ipratropium Bacova (Atrovent 0.02% (Neb)) 0.5 mg ONCE STAT NEB 08/12/17 16:25 08/12/17 16:29 DC 08/12/17 16:42 Procedures/MDM PROCEDURE: XR Chest. CLINICAL INDICATION: Chest pain. Cough. TECHNIQUE: Single AP portable chest. COMPARISON: No prior Chest x-ray FINDINGS: The cardiomediastinal silhouette is within normal limits of size. Bibasilar subsegmental atelectasis. The lungs are clear without pleural effusion or focal consolidation. No pneumothorax. The osseous structures and soft tissues are unremarkable. IMPRESSION: 1. No evidence for active cardiopulmonary disease. Minimal bibasilar subsegmental atelectasis. Electronically viewed and signed by Maya Roa Physician on 08/12/2017 17:57 This 57-year-old female presents to emergency department for cough, shortness of breath, sore throat, decreased appetite, patient reports wheezing at night audible to herself, nicotine addiction 1 pack of cigarettes a day for the last 3 months. Denies hemoptysis, fever, chills, or night sweats. Emergency room course includes history and physical exam positive for diminished breath sounds throughout posterior lower ribs, poor air movement, patient receives albuterol, Atrovent, hand-held nebulized treatment with coarse rhonchi audible after breathing treatment completed, clearing with cough, plan to administer dexamethasone, after chest x-ray results. Radiologist interpretation no evidence for active cardiopulmonary disease, minimal bibasilar segmental atelectasis. Lungs are clear without pleural effusion or focal consolidation, no pneumothorax. Patient will be discharged home with albuterol MDI, azithromycin, smoking cessation discussed. His breath sounds are clear is no longer coughing by the time she leaves emergency department patient is stable with no new complaints during ER course, clinically there is no current evidence to suggest meningitis, sepsis, pneumonia, pulmonary mass, pneumothorax , acute coronary syndromes, pulmonary embolism or any other emergent condition appearing to require further evaluation or hospitalization. I feel the patient is stable for discharge at this time. I have discussed results, examination findings, the treatment plan with the patient and family present prior to discharge. Indications for emergent reevaluation, side effects of medication were also discussed. All questions were answered. Patient verbalizes understanding and agrees with plan of care. Departure Diagnosis: Primary Impression: Bronchitis due to tobacco use Condition: Good Patient Instructions: Acute Bronchitis, Smoking Cessation [facility] Additional Instructions: Thank you for for coming to [facility] for your care today. Please ask your nurse or provider if you have questions about your care today and do not leave until all your questions have been answered. Please use any medications given as directed and follow-up with your doctor (or the doctor you were referred to) in the next 2-3 days. If you do not have a primary care doctor you may follow up at the [facility] (listed below). You may also use motrin and tylenol as needed for fever and/or pain unless instructed otherwise by your provider or nurse. Indications for more urgent follow-up have been discussed, but you may return to the Emergency Department at ANY time for any worrisome or worsening symptoms. If you have abdominal pain, please know that no test or exam you received is perfect and you should follow up within 8 hours for continued pain. If you had any imaging studies today, such as an X-Ray or CT Scan, these studies will be reviewed later by a radiologist. You will be called if there are important findings that were not identified today, so make sure the contact information you provided at registration is correct. If you received any narcotic pain control medicine today, such as Vicodin, Morphine or Dilaudid, your coordination and judgment may be affected for a number of hours. Please do not drive or operate heavy machinery, and you may want someone to assist you at home. If you were given a prescription for narcotic medication, be aware that it is very addictive- use sparingly and only if necessary. ISRA LICEA Aug 12, 2017 16:28
--- NOTE | 2017-08-12 17:57 | RADRPT ---
PROCEDURE: XR Chest. CLINICAL INDICATION: Chest pain. Cough. TECHNIQUE: Single AP portable chest. COMPARISON: No prior Chest x-ray FINDINGS: The cardiomediastinal silhouette is within normal limits of size. Bibasilar subsegmental atelectasis . The lungs are clear without pleural effusion or focal consolidation. No pneumothorax. The osseou s structures and soft tissues are unremarkable. IMPRESSION: 1. No evidence for active cardiopulmonary disease. Minimal bibasilar subsegmental atelectasis. RPTAT: HH Maya Roa Physician Date Time Electronically viewed and signed by Physician Nic on 08/12/2017 17:57 GERALDO/
[2017-08-12] MEDS ORDERED: AZIT250T94 PO (18:30)
[2017-08-12] MEDS ORDERED: ALBU18HF INHALATION (18:30)
[2017-08-12] MEDS ORDERED: DEXAMETHASONE 10 MG/ML 1 ML INJ IM ONE (18:30)
[2017-08-12] MEDS ORDERED: INHA1SPA53 MC (18:31)
== END 2017-08-12 18:59 | disposition home or self-care (01) ==
LOC: FTE 14:40
DX: J40 Bronchitis, not specified as acute or chronic (principal); I10 Essential (primary) hypertension; E11.9 Type 2 diabetes mellitus without complications; Z87.891 Personal history of nicotine dependence
CPT/HCPCS: 71020; 94664; 96372; J1100; Z7502; Z7610

== ENCOUNTER → 2018-03-14 | Emergency (ER) | END | disposition home or self-care (01) ==

== ENCOUNTER 2019-01-01 14:21 | Inpatient (IN) | payer OTHER ==
[~2019-01-01] VITALS: Ht 154.9 cm; Wt 71.9 kg
[~2019-01-01 14:21] MED LIST changes: -ACYC800T57 PO; +ATOR20TA38 PO; -BACITUD TOP; -CIPR500T4 PO; -CLOT30CR24 TOP; +GLIM2TAB PO; -HYDR-762 PO; -HYDR-906 PO; -IBUP-1542 PO; -METR500T PO; +TRAM50TA2 PO
--- NOTE | 2019-01-01 15:06 | ERD ---
ER Documentation Chief Complaint Chief Complaint hypotension, hypoglycemia HPI The patient is a 58-year-old female, presenting to the ER because of low blood pressure and low blood glucose at 62 from the clinic. She was given glucose paste and juice to drink prior to transfer. She is awake, alert, able to answer question, denies dizziness, neck pain, chest pain, dyspnea, abdominal pain, vomiting, dysuria. She smokes socially, denies drinking. She takes glipizide and insulin for her diabetes Past medical history: Dyslipidemia, diabetes mellitus Surgical history: 2 ROS All systems reviewed and are negative except as per history of present illness. Medications Home Meds Reported Medications Insulin NPH Human Isophane (Humulin N) 100 Unit/1 Ml Vial, 0 SQ DAILY, VIAL SLIDING SCALE 01/01/19 Trazodone Hcl* (Desyrel*) 100 Mg Tab, 100 MG PO QHS, #30 TAB 01/01/19 Duloxetine Hcl* (Cymbalta*) 60 Mg Capsule.dr, 120 MG PO QHS, CAP 01/01/19 Benazepril Hcl* (Benazepril Hcl*) 20 Mg Tablet, 20 MG PO DAILY, #30 TAB 01/01/19 Gabapentin* (Gabapentin*) 300 Mg Capsule, 300 MG PO TID, #90 CAP 01/01/19 Ergocalciferol (Vitamin D2) (VITAMIN D2) 2,000 Unit Tablet, 2000 UNIT PO DAILY, TAB 01/01/19 Aspirin (Low Dose Aspirin) 81 Mg Tablet.dr, 81 MG PO DAILY, #30 TAB 01/01/19 Glimepiride* (Glimepiride*) 4 Mg Tablet, 4 MG PO WITH BREAKFAST DINNE, TAB 01/01/19 Discontinued Reported Medications Atorvastatin Calcium* (Atorvastatin Calcium*) Unknown Strength Tablet, 0 PO QHS, #30 TAB 03/15/18 Glimepiride* (Glimepiride*) Unknown Strength Tablet, 0 PO WITH BREAKFAST, TAB 03/15/18 Discontinued Scripts Tramadol HCl (Tramadol HCl) 50 Mg Tablet, 50 MG PO Q4 PRN for PAIN, #20 TAB Prov:ANGELINA VIVEROS 03/15/18 Allergies Allergies: Coded Allergies: No Known Allergy (Unverified , 01/01/19) PMhx/Soc History of Surgery: Yes (C SEC X'S 2) Anesthesia Reaction: No Hx Neurological Disorder: No Hx Respiratory Disorders: No Hx Cardiac Disorders: Yes (HTN, high cholesterol) Hx Psychiatric Problems: No Hx Miscellaneous Medical Probl: Yes (iddm) Hx Alcohol Use: No Hx Substance Use: No Hx Tobacco Use: No Physical Exam Vitals Vital Signs Date Temp Pulse Resp B/P (MAP) Pulse Ox O2 O2 Flow FiO2 Time Delivery Rate 01/01/19 72 21 98/53 (68) 97 Room Air 18:49 01/01/19 80 18 117/86 100 Nasal 2.0 17:02 (96) Cannula 01/01/19 88 18 95/55 (68) 100 Nasal 2.0 15:45 Cannula 01/01/19 Nasal 2 15:13 Cannula 01/01/19 97.5 72 16 78/54 (62) 100 15:10 Physical Exam Const: No acute distress. Dehydrated Head: Atraumatic. Eyes: Normal Conjunctiva. ENT: Normal External Ears, Nose and Mouth. Neck: Full range of motion. No meningismus. Resp: Clear to auscultation bilaterally. Cardio: Regular rate and rhythm. Abd: Soft, non distended, normal bowel sounds, non tender. Skin: No petechiae or rashes. Back: No midline or flank tenderness. Ext: No cyanosis, or edema. Neur: Awake and alert. No focal deficit Psych: Normal Mood and Affect. Result Diagram: 01/01/19 1500 01/01/19 1500 Results 24 hrs Laboratory Tests Test 01/01/19 14:55 01/01/19 15:00 01/01/19 15:19 01/01/19 15:29 Bedside Glucose 75 mg/dL 134 mg/dL White Blood Count 13.2 10^3/ul Red Blood Count 4.80 10^6/ul Hemoglobin 14.5 g/dl Hematocrit 44.1 % Mean Corpuscular 91.9 fl Volume Mean Corpuscular 30.2 pg Hemoglobin Mean Corpuscular 32.9 g/dl Hemoglobin Concen t Red Cell 13.7 % Distribution Width Platelet Count 176 10^3/UL Mean Platelet 12.1 fl Volume Immature 0.900 % Granulocytes % Neutrophils % 72.9 % Lymphocytes % 18.2 % Monocytes % 6.4 % Eosinophils % 1.1 % Basophils % 0.5 % Nucleated Red 0.0 /100WBC Blood Cells % Immature 0.120 10^3/ul Granulocytes # Neutrophils # 9.6 10^3/ul Lymphocytes # 2.4 10^3/ul Monocytes # 0.9 10^3/ul Eosinophils # 0.1 10^3/ul Basophils # 0.1 10^3/ul Nucleated Red 0.0 10^3/ul Blood Cells # Prothrombin Time 11.6 Sec Prothrombin Time 0.9 Ratio INR International 0.84 Normalized Ratio Activated 24.3 Sec Partial Thrombopl ast Time Sodium Level 141 mmol/L Potassium Level 3.7 mmol/L Chloride Level 106 mmol/L Carbon Dioxide 29 mmol/L Level Anion Gap 6 Blood Urea 19 mg/dl Nitrogen Creatinine 0.38 mg/dl Est Glomerular > 60 mL/min Filtrat Rate mL/min Glucose Level 65 mg/dl Calcium Level 9.1 mg/dl Total Bilirubin 0.6 mg/dl Direct Bilirubin 0.00 mg/dl Indirect 0.6 mg/dl Bilirubin Aspartate Amino 22 IU/L Transf (AST/SGOT) Alanine 25 IU/L Aminotransferase (ALT/SGPT) Alkaline 71 IU/L Phosphatase Troponin I < 0.012 ng/ml Total Protein 6.3 g/dl Albumin 3.5 g/dl Globulin 2.80 g/dl Albumin/Globulin 1.25 Ratio POC Venous 1.3 mmol/L Lactate Test 01/01/19 15:52 01/01/19 17:20 01/01/19 18:44 Urine Color YELLOW Urine Clarity CLEAR Urine pH 5.0 Urine Specific 1.006 [place] Urine Ketones NEGATIVE mg/dL Urine Nitrite NEGATIVE mg/dL Urine Bilirubin NEGATIVE mg/dL Urine NEGATIVE mg/dL Urobilinogen Urine Leukocyte TRACE Melina/ul Esterase Urine Microscopic 2 /HPF RBC Urine Microscopic 3 /HPF WBC Urine Squamous FEW /HPF Epithelial Cells Urine Bacteria FEW /HPF Urine Hemoglobin NEGATIVE mg/dL Urine Glucose 1+ mg/dL Urine Total NEGATIVE mg/dl Protein Bedside Glucose 67 mg/dL 162 mg/dL Current Medications Medications Dose Sig/Marino Start Time Status Last (Trade) Ordered Route PRN Stop Time Admin Dose Reason Admin Dextrose 50 ml ONCE ONCE 01/01/19 DC 01/01/19 (D50w IV 15:30 15:14 Syringe) 01/01/19 15:31 Procedures/MDM [address] [address] Radiology Main Line: [phone] DIAGNOSTIC IMAGING REPORT Patient: GUNJAN FIELDS : 1960 Age: 58 Sex: F MR #: [id number] DOS: 01/01/19 1506 Ordering MD: SHON ARREGUIN MD Location: E/R Room/Bed: PROCEDURE: XR Chest. CLINICAL INDICATION: Shortness of breath TECHNIQUE: Single portable view of the chest was obtained COMPARISON: DR TREADWELL 03/14/2018 FINDINGS: The trachea is midline. The cardiac silhouette is enlarged and pulmonary vascularity are within normal limits. The lungs are clear. The costophrenic angles are sharp. IMPRESSION: 1. Cardiomegaly. No evidence of acute cardiopulmonary disease. RPTAT: AAPP Physician Leidy Date Time Electronically viewed and signed by Juan Knight Physician on 01/01/2019 16:00 JL/ CC: SHON ARREGUIN MD [phone] EKG: Read by emergency physician Rate/Rhythm: Normal Sinus Rhythm 75 beats/min QRS, ST, T-waves: No ST elevation, no T inversion Impression: Normal EKG MEDICAL MAKING DECISION: The patient is a 58-year-old female, presenting with a cute hyperglycemia, acute hypotension of unclear etiology. She was treated with 1 L normal saline for acute hypotension, Accu-Chek was 75, she was given 1 amp of D50 IV and later she was able to tolerate p.o. well. However her blood glucose has been fluctuating The differential diagnoses considered include but are not limited to UTI, pneumonia, overmedication, dehydration Departure Diagnosis: Primary Impression: Hypoglycemia Additional Impression: Hypotension Condition: Stable Comments I discussed the findings with the patient. I discussed the patient with the spitalist Dr Elder at 6 pm who was made aware of the lab, the treatment, the patient condition. The patient is admitted to [facility] Disclaimer: Inadvertent spelling and grammatical errors are likely due to EHR/dictation software use and do not reflect on the overall quality of patient care. Also, please note that the electronic time recorded on this note does not necessarily reflect the actual time of the patient encounter. SHON ARREGUIN MD Jan 01, 2019 15:06
[2019-01-01] MEDS ORDERED: DEXTROSE 50% 50 ML SYRINGE IV ONE (15:30)
[2019-01-01] MEDS ORDERED: GLIM4TAB PO (16:42)
[2019-01-01] MEDS ORDERED: ASPI81TA52 PO (16:42)
[2019-01-01] MEDS ORDERED: ERGO2000 PO (16:43)
[2019-01-01] MEDS ORDERED: BENA20TA4 PO (16:43)
[2019-01-01] MEDS ORDERED: GABA300C16 PO (16:43)
[2019-01-01] MEDS ORDERED: DULO60CA6 PO (16:44)
[2019-01-01] MEDS ORDERED: TRAZ-150 PO (16:44)
[2019-01-01] MEDS ORDERED: NPH,100V SQ (16:45)
[2019-01-01 23:00] VITALS: PULSE 75
[2019-01-01 23:01] VITALS: BP 106/56; PULSE 73; RESP 20
[2019-01-01 23:07] VITALS: Ht 154.9 cm; Wt 71.9 kg
[2019-01-01] MEDS ORDERED: GLIP5TAB13 PO (23:07)
[2019-01-01] MEDS ORDERED: NICO-491 TD (23:28)
[2019-01-02] VITALS (11 sets, daily range): BP systolic 104–119; BP diastolic 55–77; PULSE 63–77; RESP 18–19
[2019-01-02] MEDS ORDERED: ACETAMINOPHEN 325 MG TAB PO PRN (01:00)
[2019-01-02] MEDS ORDERED: GLUCOSE GEL 15 GRAM TUBE BUCCAL PRN (01:00)
[2019-01-02] MEDS ORDERED: NACL 0.9% 3 ML SYG IV SCH (01:00)
[2019-01-02] MEDS ORDERED: GLUCAGON 1 MG INJ IM PRN (01:00)
[2019-01-02] MEDS ORDERED: DEXTROSE 50% 50 ML SYRINGE IV PRN ×2 (01:00)
[2019-01-02] MEDS ORDERED: ONDANSETRON 4 MG INJ IV PRN (01:00)
[2019-01-02] MEDS ORDERED: ALBUTEROL/IPRATROPIUM (NEB) 3 ML AMP HHN PRN (01:00)
[2019-01-02] MEDS ORDERED: GLUCOSE GEL 15 GRAM TUBE PO PRN ×2 (01:00)
[2019-01-02] MEDS: ACCU-CHEK XX SCH (02:00)
--- NOTE | 2019-01-02 07:20 | HP ---
Date/Time of Note Date/Time of Note DATE: 01/02/19 TIME: 07:18 Assessment/Plan VTE Prophylaxis Pharmacological prophylaxis: heparin Lines/Catheters IV Catheter Type (from Nrsg): Saline Lock Urinary Cath still in place: No Assessment/Plan Assessment/Plan 1. Hypoglycemia: Patient on sulfonylurea and insulin at home -Hold glipizide and insulin for now. Monitor blood glucose closely 2. Hypotension: Likely from dehydration -IV fluid -Hold BP meds for now 3. Depression: Continue home med Result Diagram: 01/02/19 0528 01/02/19 0528 Results 24hrs Laboratory Tests Test 01/01/19 14:55 01/01/19 15:00 01/01/19 15:19 01/01/19 15:29 Bedside Glucose 75 134 White Blood Count 13.2 H Red Blood Count 4.80 Hemoglobin 14.5 Hematocrit 44.1 Mean Corpuscular 91.9 Volume Mean Corpuscular 30.2 Hemoglobin Mean Corpuscular 32.9 Hemoglobin Concent Red Cell 13.7 Distribution Width Platelet Count 176 Mean Platelet Volume 12.1 H Immature 0.900 H Granulocytes % Neutrophils % 72.9 Lymphocytes % 18.2 Monocytes % 6.4 Eosinophils % 1.1 Basophils % 0.5 Nucleated Red Blood 0.0 Cells % Immature 0.120 H Granulocytes # Neutrophils # 9.6 H Lymphocytes # 2.4 Monocytes # 0.9 Eosinophils # 0.1 Basophils # 0.1 Nucleated Red Blood 0.0 Cells # Prothrombin Time 11.6 L Prothrombin Time 0.9 Ratio INR International 0.84 Normalized Ratio Activated 24.3 Partial Thromboplast Time Sodium Level 141 Potassium Level 3.7 Chloride Level 106 Carbon Dioxide Level 29 Anion Gap 6 Blood Urea Nitrogen 19 Creatinine 0.38 L Est Glomerular > 60 Filtrat Rate mL/min Glucose Level 65 L Calcium Level 9.1 Total Bilirubin 0.6 Direct Bilirubin 0.00 Indirect Bilirubin 0.6 Aspartate Amino 22 Transf (AST/SGOT) Alanine 25 Aminotransferase (AL T/SGPT) Alkaline Phosphatase 71 Troponin I < 0.012 Total Protein 6.3 Albumin 3.5 Globulin 2.80 Albumin/Globulin 1.25 Ratio POC Venous Lactate 1.3 Test 01/01/19 15:52 01/01/19 17:20 01/01/19 18:44 01/01/19 21:50 Urine Color YELLOW Urine Clarity CLEAR Urine pH 5.0 Urine Specific 1.006 [place] Urine Ketones NEGATIVE Urine Nitrite NEGATIVE Urine Bilirubin NEGATIVE Urine Urobilinogen NEGATIVE Urine Leukocyte TRACE A Esterase Urine Microscopic 2 RBC Urine Microscopic 3 WBC Urine Squamous FEW Epithelial Cells Urine Bacteria FEW A Urine Hemoglobin NEGATIVE Urine Glucose 1+ H Urine Total Protein NEGATIVE Bedside Glucose 67 L 162 Lactic Acid Level 1.0 Test 01/01/19 23:42 01/02/19 01:47 01/02/19 05:28 Bedside Glucose 229 H 192 White Blood Count 11.4 H Red Blood Count 4.65 Hemoglobin 13.9 Hematocrit 43.2 Mean Corpuscular 92.9 Volume Mean Corpuscular 29.9 Hemoglobin Mean Corpuscular 32.2 Hemoglobin Concent Red Cell 13.9 Distribution Width Platelet Count 173 Mean Platelet Volume 12.1 H Immature 0.700 H Granulocytes % Neutrophils % 60.4 Lymphocytes % 29.0 Monocytes % 7.7 Eosinophils % 1.6 Basophils % 0.6 Nucleated Red Blood 0.0 Cells % Immature 0.080 H Granulocytes # Neutrophils # 6.9 Lymphocytes # 3.3 H Monocytes # 0.9 Eosinophils # 0.2 Basophils # 0.1 Nucleated Red Blood 0.0 Cells # Sodium Level 144 Potassium Level 4.2 Chloride Level 109 Carbon Dioxide Level 30 Anion Gap 5 Blood Urea Nitrogen 13 Creatinine 0.33 L Est Glomerular > 60 Filtrat Rate mL/min Glucose Level 162 Hemoglobin A1c 9.5 H Calcium Level 8.8 Magnesium Level 2.0 Total Bilirubin 0.7 Direct Bilirubin 0.00 Indirect Bilirubin 0.7 Aspartate Amino 20 Transf (AST/SGOT) Alanine 28 Aminotransferase (AL T/SGPT) Alkaline Phosphatase 76 Total Protein 5.6 L Albumin 3.0 L Globulin 2.60 Albumin/Globulin 1.15 Ratio Triglycerides Level 145 Cholesterol Level 154 LDL Cholesterol, 96 Calculated HDL Cholesterol 29 L Cholesterol/HDL 5.3 Ratio Thyroid Stimulating Pending Hormone (TSH) HPI/ROS Admit Date/Time Admit Date/Time Jan 01, 2019 at 18:02 Hx of Present Illness This is a 4-year-old female who is a history of hypertension, diabetes, on insulin and glipizide, depression who was sent from the clinic for hypoglycemia and hypotension. Reportedly blood glucose was in the low 60s. Patient currently does not have any complaints. When she presented to ER, blood pressure was 78/54, glucose 65. PMH/Family/Social Past Medical History Past Surgical History Past Surgical Hx: other (see hpi) Family History Significant Family History: no pertinent family hx Social History Alcohol Use: other Smoking Status: Unknown if ever smoked Drug Use: other Exam Constitutional: other (no acute distress) Eyes: PERRL ENMT: nl external ears & nose Neck: supple Respiratory: normal air movement Cardiovascular: nl pulses Gastrointestinal: soft Extremities: normal pulses Medications Current Medications IV Flush (NS 3 ml) 3 ml PER PROTOCOL IV ; Start 01/02/19 at 01:00 Ondansetron HCl (Zofran Inj) 4 mg Q6H PRN IV NAUSEA/VOMITING; Start 01/02/19 at 01:00 Acetaminophen (Tylenol Tab) 650 mg Q6H PRN PO .PAIN 1-3 OR TEMP; Start 01/02/19 at 01:00 Heparin Sodium (Porcine) (Heparin (5000 Units/1ml)) 5,000 unit Q12 SC ; Start 01/02/19 at 09:00 Albuterol/ Ipratropium (Duoneb) 3 ml Q2H RESP THERAPY PRN HHN SHORTNESS OF BREATH; Start 01/02/19 at 01:00 Aspirin (Halfprin) 81 mg DAILY PO ; Start 01/02/19 at 09:00 Benazepril HCl (Lotensin) 20 mg DAILY PO ; Start 01/02/19 at 09:00 Duloxetine HCl (Cymbalta) 120 mg QHS PO ; Start 01/02/19 at 21:00 Gabapentin (Neurontin) 300 mg TID PO ; Start 01/02/19 at 09:00 Trazodone HCl (Desyrel) 100 mg QHS PO ; Start 01/02/19 at 21:00 Miscellaneous Information 1 each DAILY TD ; Start 01/02/19 at 09:00; Status UNV Diagnostic Test (Pha) (Accu-Chek) 1 ea 02 XX ; Start 01/02/19 at 02:00 Insulin Aspart (Novolog Insulin Pen) NOVOLOG *MILD* ALGORITHM WITH MEALS BEDTIME SC ; Start 01/02/19 at 08:00 Miscellaneous Information 1 ea NOTE XX ; Start 01/02/19 at 01:00 Glucose (Glutose) 15 gm Q15M PRN PO DECREASED GLUCOSE; Start 01/02/19 at 01:00 Glucose (Glutose) 22.5 gm Q15M PRN PO DECREASED GLUCOSE; Start 01/02/19 at 01:00 Dextrose (D50w Syringe) 25 ml Q15M PRN IV DECREASED GLUCOSE; Start 01/02/19 at 01:00 Dextrose (D50w Syringe) 50 ml Q15M PRN IV DECREASED GLUCOSE; Start 01/02/19 at 01:00 Glucagon (Glucagen) 1 mg Q15M PRN IM DECREASED GLUCOSE; Start 01/02/19 at 01:00 Glucose (Glutose) 15 gm Q15M PRN BUCCAL DECREASED GLUCOSE; Start 01/02/19 at 0 1:00 Coded Allergies: No Known Allergy (Unverified , 01/01/19) Social History Smoking Status: Light tobacco smoker Exam/Review of Systems Vital Signs Vitals Vital Signs Date Temp Pulse Resp B/P (MAP) Pulse Ox O2 O2 Flow FiO2 Time Delivery Rate 01/02/19 71 04:54 01/02/19 98.3 19 104/55 97 03:55 (71) 01/01/19 Room Air 23:01 01/01/19 2.0 17:02 ANGELINA SOW MD Jan 02, 2019 07:20
[2019-01-02] MEDS: INSULIN ASPART [NOVOLOG] 3 ML PEN SC SCH ×4 (08:11→23:16)
[2019-01-02] MEDS: GABAPENTIN 300 MG CAP PO SCH ×3 (10:59→23:09)
[2019-01-02] MEDS: BENAZEPRIL 20 MG TAB PO SCH (10:59)
[2019-01-02] MEDS: ASPIRIN (EC) 81 MG TAB PO SCH (10:59)
[2019-01-02] MEDS: HEPARIN 5,000 UNIT/1 ML VIAL SC SCH ×2 (11:05→23:17)
--- NOTE | 2019-01-02 15:06 | PN ---
Date/Time of Note Date/Time of Note DATE: 01/02/19 TIME: 15:06 Objective Vitals Vital Signs Date Temp Pulse Resp B/P (MAP) Pulse Ox O2 O2 Flow FiO2 Time Delivery Rate 01/02/19 65 12:01 01/02/19 98.3 18 119/58 97 Room Air 11:18 (78) 01/01/19 2.0 17:02 Results Result Diagram: 01/02/19 0528 01/02/19 0528 Medications Medications Current Medications IV Flush (NS 3 ml) 3 ml PER PROTOCOL IV ; Start 01/02/19 at 01:00 Ondansetron HCl (Zofran Inj) 4 mg Q6H PRN IV NAUSEA/VOMITING; Start 01/02/19 at 01:00 Acetaminophen (Tylenol Tab) 650 mg Q6H PRN PO .PAIN 1-3 OR TEMP; Start 01/02/19 at 01:00 Heparin Sodium (Porcine) (Heparin (5000 Units/1ml)) 5,000 unit Q12 SC Last administered on 01/02/19at 11:05; Admin Dose 5,000 UNIT; Start 01/02/19 at 09:00 Albuterol/ Ipratropium (Duoneb) 3 ml Q2H RESP THERAPY PRN HHN SHORTNESS OF BREATH; Start 01/02/19 at 01:00 Aspirin (Halfprin) 81 mg DAILY PO Last administered on 01/02/19at 10:59; Admin Dose 81 MG; Start 01/02/19 at 09:00 Benazepril HCl (Lotensin) 20 mg DAILY PO Last administered on 01/02/19at 10:59; Admin Dose 20 MG; Start 01/02/19 at 09:00 Duloxetine HCl (Cymbalta) 120 mg QHS PO ; Start 01/02/19 at 21:00 Gabapentin (Neurontin) 300 mg TID PO Last administered on 01/02/19at 10:59; Admin Dose 300 MG; Start 01/02/19 at 09:00 Trazodone HCl (Desyrel) 100 mg QHS PO ; Start 01/02/19 at 21:00 Miscellaneous Information 1 each DAILY TD ; Start 01/02/19 at 09:00; Status UNV Diagnostic Test (Pha) (Accu-Chek) 1 ea 02 XX ; Start 01/02/19 at 02:00 Insulin Aspart (Novolog Insulin Pen) NOVOLOG *MILD* ALGORITHM WITH MEALS BEDTIME SC Last administered on 01/02/19at 11:19; Admin Dose 2 UNIT; Start 01/02/19 at 08:00 Miscellaneous Information 1 ea NOTE XX ; Start 01/02/19 at 01:00 Glucose (Glutose) 15 gm Q15M PRN PO DECREASED GLUCOSE; Start 01/02/19 at 01:00 Glucose (Glutose) 22.5 gm Q15M PRN PO DECREASED GLUCOSE; Start 01/02/19 at 01:00 Dextrose (D50w Syringe) 25 ml Q15M PRN IV DECREASED GLUCOSE; Start 01/02/19 at 01:00 Dextrose (D50w Syringe) 50 ml Q15M PRN IV DECREASED GLUCOSE; Start 01/02/19 at 01:00 Glucagon (Glucagen) 1 mg Q15M PRN IM DECREASED GLUCOSE; Start 01/02/19 at 01:00 Glucose (Glutose) 15 gm Q15M PRN BUCCAL DECREASED GLUCOSE; Start 01/02/19 at 01:00 Insulin Glargine (Lantus) 10 units DAILY@2000 SC ; Start 01/02/19 at 20:00 Repaglinide (Prandin) 1 mg WITH MEALS PO ; Start 01/02/19 at 18:00; Status UNV VTE Prophylaxis Risk score (from Ns)>0 risk: 2 SCD applied (from Ns): Yes Lines/Catheters IV Catheter Type: Mak in Place: No Assessment/Plan Hospital Course Subjective Patient feeling okay, still with mild knee pain, dizziness has subsided Objective Physical exam General: Patient is laying in bed and answers questions appropriately Mentation: Patient is alert and oriented 4, Head: Normocephalic atraumatic Eyes: EOMI, pupils reactive to light Neck: Supple, nontender, midline Respiratory: Clear to auscultation bilaterally Cardiovascular: regular rate, no obvious murmurs Gastrointestinal: non-tender to palpation, bowel sounds heard. Neurological: Moves all extremities spontaneously Skin: No new skin lesions Assessment and plan Hypoglycemia -Patient on what appears to be NPH and glipizide after speaking with her, may need adjustment -We will start off with Lantus and Prandin to adjust and assess her need of medications -Diabetes consult -Hypoglycemia has resolved Hypo-tension -Resolved -Possibly due to hypoglycemic effect or volume depletion, monitor Knee pain -Bilateral knee pain, was the original reason why patient was even at her primary doctor's clinic -Patient feels unstable when she tries to walk and is concerned -Knee x-ray bilaterally -PT Depression -Continue home meds Hypertension -Continue home meds Disposition -We will need to come up with a safe diabetic regimen before discharge. In the meantime will workup patient's knee pain DEBBY BRAVO Jan 02, 2019 15:06
[2019-01-02] MEDS: REPAGLINIDE 1 MG TAB PO SCH (17:32)
[2019-01-02] MEDS ORDERED: INSULIN GLARGINE [LANTus] (100 UNITS/ML) SYG SC SCH (20:00)
[2019-01-02] MEDS: DULOXETINE 30 MG CAP DR PO SCH (23:09)
[2019-01-02] MEDS: traZODone 100 MG TAB PO SCH (23:09)
[2019-01-03] VITALS (12 sets, daily range): BP systolic 96–127; BP diastolic 52–58; PULSE 66–80; RESP 16–19
[2019-01-03] MEDS: ACCU-CHEK XX SCH (02:00)
[2019-01-03] MEDS: INSULIN ASPART [NOVOLOG] 3 ML PEN SC SCH ×4 (08:18→21:09)
[2019-01-03] MEDS: BENAZEPRIL 20 MG TAB PO SCH (09:07)
[2019-01-03] MEDS: ASPIRIN (EC) 81 MG TAB PO SCH (09:07)
[2019-01-03] MEDS: GABAPENTIN 300 MG CAP PO SCH ×3 (09:07→20:54)
[2019-01-03] MEDS: REPAGLINIDE 1 MG TAB PO SCH (09:08)
[2019-01-03] MEDS: HEPARIN 5,000 UNIT/1 ML VIAL SC SCH ×2 (09:12→21:08)
[2019-01-03] MEDS: DICLOFENAC SODIUM 1% GEL 100 GM TUBE TP SCH ×3 (11:54→21:11)
--- NOTE | 2019-01-03 14:55 | PN ---
Date/Time of Note Date/Time of Note DATE: 01/03/19 TIME: 14:52 Objective Vitals Vital Signs Date Temp Pulse Resp B/P (MAP) Pulse Ox O2 O2 Flow FiO2 Time Delivery Rate 01/03/19 77 12:23 01/03/19 98.0 18 127/58 97 Room Air 11:02 (81) 01/02/19 21 20:55 01/01/19 2.0 17:02 Intake and Output 01/02/19 01/02/19 01/03/19 1515:00 23:00 07:00 IntakeIntake Total 100 ml 800 ml 600 ml BalanceBalance 100 ml 800 ml 600 ml Results Result Diagram: 01/03/19 0510 01/03/19 0510 Medications Medications Current Medications IV Flush (NS 3 ml) 3 ml PER PROTOCOL IV ; Start 01/02/19 at 01:00 Ondansetron HCl (Zofran Inj) 4 mg Q6H PRN IV NAUSEA/VOMITING; Start 01/02/19 at 01:00 Acetaminophen (Tylenol Tab) 650 mg Q6H PRN PO .PAIN 1-3 OR TEMP; Start 01/02/19 at 01:00 Heparin Sodium (Porcine) (Heparin (5000 Units/1ml)) 5,000 unit Q12 SC Last administered on 01/03/19at 09:12; Admin Dose 5,000 UNIT; Start 01/02/19 at 09:00 Albuterol/ Ipratropium (Duoneb) 3 ml Q2H RESP THERAPY PRN HHN SHORTNESS OF BREATH; Start 01/02/19 at 01:00 Aspirin (Halfprin) 81 mg DAILY PO Last administered on 01/03/19at 09:07; Admin Dose 81 MG; Start 01/02/19 at 09:00 Benazepril HCl (Lotensin) 20 mg DAILY PO Last administered on 01/03/19 09:07; Admin Dose 20 MG; Start 01/02/19 at 09:00 Duloxetine HCl (Cymbalta) 120 mg QHS PO Last administered on 01/02/19at 23:09; Admin Dose 120 MG; Start 01/02/19 at 21:00 Gabapentin (Neurontin) 300 mg TID PO Last administered on 01/03/19at 13:08; Admin Dose 300 MG; Start 01/02/19 at 09:00 Trazodone HCl (Desyrel) 100 mg QHS PO Last administered on 01/02/19at 23:09; Admin Dose 100 MG; Start 01/02/19 at 21:00 Miscellaneous Information 1 each DAILY TD ; Start 01/02/19 at 09:00; Status UNV Diagnostic Test (Pha) (Accu-Chek) 1 ea 02 XX Last administered on 01/03/19at 02:00; Admin Dose 1 EA; Start 01/02/19 at 02:00 Insulin Aspart (Novolog Insulin Pen) NOVOLOG *MILD* ALGORITHM WITH MEALS BEDTIME SC Last administered on 01/03/19at 11:59; Admin Dose 2 UNIT; Start 01/02/19 at 08:00 Miscellaneous Information 1 ea NOTE XX ; Start 01/02/19 at 01:00 Glucose (Glutose) 15 gm Q15M PRN PO DECREASED GLUCOSE; Start 01/02/19 at 01:00 Glucose (Glutose) 22.5 gm Q15M PRN PO DECREASED GLUCOSE; Start 01/02/19 at 01:00 Dextrose (D50w Syringe) 25 ml Q15M PRN IV DECREASED GLUCOSE; Start 01/02/19 at 01:00 Dextrose (D50w Syringe) 50 ml Q15M PRN IV DECREASED GLUCOSE; Start 01/02/19 at 01:00 Glucagon (Glucagen) 1 mg Q15M PRN IM DECREASED GLUCOSE; Start 01/02/19 at 01:00 Glucose (Glutose) 15 gm Q15M PRN BUCCAL DECREASED GLUCOSE; Start 01/02/19 at 01:00 Diclofenac Sodium (Voltaren 1% Gel) 4 gm QID TP Last administered on 01/03/19at 11:54; Admin Dose 4 GM; Start 01/03/19 at 11:00 Glipizide (Glucotrol) 2.5 mg AC BREAKFAST DINNER PO ; Start 01/03/19 at 17:30 Insulin Glargine (Lantus) 15 units DAILY@2000 SC ; Start 01/03/19 at 20:00 VTE Prophylaxis Risk score (from Nsg)>0 risk: 1 SCD applied (from Nsg): Yes Lines/Catheters IV Catheter Type: Mak in Place: No Assessment/Plan Hospital Course Subjective Patient feeling much better Objective Physical exam General: Patient is laying in bed and answers questions appropriately Mentation: Patient is alert and oriented 4, Head: Normocephalic atraumatic Eyes: EOMI, pupils reactive to light Neck: Supple, nontender, midline Respiratory: Clear to auscultation bilaterally Cardiovascular: regular rate, no obvious murmurs Gastrointestinal: non-tender to palpation, bowel sounds heard. Neurological: Moves all extremities spontaneously Skin: No new skin lesions Assessment and plan Hypoglycemia -Patient on what appears to be NPH and glipizide after speaking with her, may need adjustment -We will start off with Lantus and Prandin to adjust and assess her need of medications -Diabetes consult -Hypoglycemia has resolved Hypo-tension -Resolved -Possibly due to hypoglycemic effect or volume depletion, monitor Knee pain -Bilateral knee pain, was the original reason why patient was even at her primary doctor's clinic -Patient feels unstable when she tries to walk and is concerned -Knee x-ray bilaterally shows [id number] enthesophytes, possibly sequelae of quadriceps tendinitis -PT -We will obtain MRI so that patient can bring to her outpatient clinic for further management -We will try topical Voltaren gel for now Depression -Continue home meds Hypertension -Continue home meds Disposition -We will need to come up with a safe diabetic regimen before discharge. In the meantime will workup patient's knee pain DEBBY BRAVO Jan 03, 2019 14:55
[2019-01-03] MEDS: glipiZIDE 5 MG TAB PO SCH (17:43)
[2019-01-03] MEDS ORDERED: INSULIN GLARGINE [LANTus] (100 UNITS/ML) SYG SC SCH (20:00)
[2019-01-03] MEDS: DULOXETINE 30 MG CAP DR PO SCH (20:54)
[2019-01-03] MEDS: traZODone 100 MG TAB PO SCH (20:54)
[2019-01-04] VITALS (10 sets, daily range): BP systolic 104–130; BP diastolic 53–62; PULSE 68–83; RESP 17–18
[2019-01-04] MEDS: ACCU-CHEK XX SCH (02:05)
[2019-01-04] MEDS: INSULIN ASPART [NOVOLOG] 3 ML PEN SC SCH ×3 (07:39→17:52)
[2019-01-04] MEDS: ASPIRIN (EC) 81 MG TAB PO SCH (08:45)
[2019-01-04] MEDS: GABAPENTIN 300 MG CAP PO SCH ×2 (08:45→13:30)
[2019-01-04] MEDS: glipiZIDE 5 MG TAB PO SCH ×2 (08:46→17:40)
[2019-01-04] MEDS: BENAZEPRIL 20 MG TAB PO SCH (08:47)
[2019-01-04] MEDS: DICLOFENAC SODIUM 1% GEL 100 GM TUBE TP SCH ×3 (08:54→17:40)
[2019-01-04] MEDS: HEPARIN 5,000 UNIT/1 ML VIAL SC SCH (08:54)
[2019-01-04] MEDS ORDERED: NICOTINE (21 MG/24 HR) PATCH TRANSDERM SCH (09:00)
[2019-01-04] MEDS ORDERED: INSU100I33 SC (11:56)
[2019-01-04] MEDS ORDERED: NAPR220C2 PO (11:56)
[2019-01-04] MEDS ORDERED: GLIP5TAB13 PO (11:56)
--- NOTE | 2019-01-04 12:01 | DS ---
Date/Time of Note Date/Time of Note DATE: 01/04/19 TIME: 12:01 Discharge Summary Admission/Discharge Info Admit Date/Time Jan 01, 2019 at 18:02 Discharge Date/Time Patient Condition: Stable Hospital Course Patient is a female with a past medical history significant for diabetes mellitus, hypertension, mood disorder who presents to [facility] after being sent by her clinic for hypotension and hypoglycemia. Patient has been on a fairly robust regimen of NPH and glipizide for many years however her sugars were found to be fairly low on admission. Patient was started on more appropriate long-term acting insulin and according to her insurance basaglar was covered. The long-term insulin pen will be delivered to her at bedside before discharge and there were also adjusted is made to her oral sulfonylurea. Patient has been doing well for the past 2 days and will be discharged to follow-up with her primary care provider by next week. The sugars are slightly above average at this time due to risk of hypoglycemia, patient was instructed to ask her primary care provider to adjust the medication as tolerated. During this time patient also had bilateral knee pain which caused a fall last week at which was the original reason patient was at her primary care office before. Patient got an MRI which showed mild degeneration of the medial meniscus, chondral malacia and some degeneration and some mild edema. Patient was seen by physical therapy and front wheel walker and [facility] physical therapy will be arranged before discharge. MRI results will be given to patient for patient to go to her primary care physician to get an orthopedic surgery referral. Patient is doing well will be discharged with appropriate medications. Patient will be discharged on a short course of nonsteroidal anti-inflammatory with meals. Discharge diagnosis Hypoglycemia, resolved Hypotension, resolved Knee pain, ongoing Depression, ongoing Hypertension, ongoing Home Meds Active Scripts Naproxen* (Aleve*) 220 Mg Capsule, 220 MG PO BID WITH MEALS, #20 CAP Prov:DEBBY BRAVO 01/04/19 Glipizide* (Glipizide*) 5 Mg Tablet, 2.5 MG PO AC BREAKFAST DINNER for 30 Days, #15 TAB Prov:DEBBY BRAVO 01/04/19 Reported Medications Nicotine (Nicotine Patch) 1 Each Patch.dysq, 1 EACH TD DAILY 01/01/19 Glipizide* (Glipizide*) 5 Mg Tablet, 5 MG PO BID, TAB 01/01/19 Insulin NPH Human Isophane (Humulin N) 100 Unit/1 Ml Vial, 0 SQ DAILY, VIAL SLIDING SCALE 01/01/19 Trazodone Hcl* (Desyrel*) 100 Mg Tab, 100 MG PO QHS, #30 TAB 01/01/19 Duloxetine Hcl* (Cymbalta*) 60 Mg Capsule.dr, 120 MG PO QHS, CAP 01/01/19 Benazepril Hcl* (Benazepril Hcl*) 20 Mg Tablet, 20 MG PO DAILY, #30 TAB 01/01/19 Gabapentin* (Gabapentin*) 300 Mg Capsule, 300 MG PO TID, #90 CAP 01/01/19 Ergocalciferol (Vitamin D2) (VITAMIN D2) 2,000 Unit Tablet, 2000 UNIT PO DAILY, TAB 01/01/19 Aspirin (Low Dose Aspirin) 81 Mg Tablet.dr, 81 MG PO DAILY, #30 TAB 01/01/19 Glimepiride* (Glimepiride*) 4 Mg Tablet, 4 MG PO WITH BREAKFAST DINNE, TAB 01/01/19 Discontinued Reported Medications Atorvastatin Calcium* (Atorvastatin Calcium*) Unknown Strength Tablet, 0 PO QHS, #30 TAB 03/15/18 Glimepiride* (Glimepiride*) Unknown Strength Tablet, 0 PO WITH BREAKFAST, TAB 03/15/18 Discontinued Scripts Tramadol HCl (Tramadol HCl) 50 Mg Tablet, 50 MG PO Q4 PRN for PAIN, #20 TAB Prov:ANGELINA VIVEROS Josefina 03/15/18 Primary Care Provider [facility] Time spent on discharge: > 30 minutes Pending Labs Laboratory Tests Test 01/03/19 17:10 01/03/19 20:51 01/04/19 01:37 01/04/19 05:29 Bedside 172 247 187 Glucose mg/dL (70-220) mg/dL (70-220) mg/dL (70-220) White Blood 11.0 Count 10^3/ul (4.8-1 0.8) Red Blood 4.68 Count 10^6/ul (4.20- 5.40) Hemoglobin 13.9 g/dl (12.0-16. 0) Hematocrit 43.6 % (37.0-47.0) Mean 93.2 Corpuscular fl (82.0-101.0 Volume ) Mean 29.7 Corpuscular pg (29.0-33.0) Hemoglobin Mean 31.9 Corpuscular g/dl (32.0-37. Hemoglobin Conc 0) ent Red Cell 13.6 Distribution % (11.5-14.5) Width Platelet Count 171 10^3/UL (140-4 15) Mean Platelet 12.2 Volume fl (7.4-10.4) Immature 0.600 Granulocytes % % (0.001-0.429 ) Neutrophils % 65.2 % (39.0-77.0) Lymphocytes % 25.2 % (15.0-51.0) Monocytes % 6.8 % (0.0-11.0) Eosinophils % 1.5 % (0.0-7.0) Basophils % 0.7 % (0.0-2.0) Nucleated Red 0.0 Blood Cells % /100WBC (0.0-0 .0) Immature 0.070 Granulocytes # 10^3/ul (0.0-0 .031) Neutrophils # 7.1 10^3/ul (1.6-7 .5) Lymphocytes # 2.8 10^3/ul (0.8-2 .9) Monocytes # 0.8 10^3/ul (0.3-0 .9) Eosinophils # 0.2 10^3/ul (0.0-0 .5) Basophils # 0.1 10^3/ul (0.0-0 .1) Nucleated Red 0.0 Blood Cells # 10^3/ul (0.0-0 .0) Sodium Level 138 mmol/L (135-14 4) Potassium 4.2 Level mmol/L (3.5-5. 1) Chloride Level 105 mmol/L (97-110 ) Carbon Dioxide 31 Level mmol/L (21-31) Anion Gap 2 (5-13) Blood Urea 19 Nitrogen mg/dl (7-20) Creatinine 0.36 mg/dl (0.44-1. 00) Est Glomerular > 60 Filtrat mL/min (>60) Rate mL/min Glucose Level 200 mg/dl (70-220) Calcium Level 8.9 mg/dl (8.4-10. 2) Phosphorus 3.8 Level mg/dl (2.5-4.9 ) Magnesium 1.8 Level mg/dl (1.7-2.5 ) Test 01/04/19 07:35 Bedside 211 Glucose mg/dL (70-220) DEBBY BRAVO Jan 04, 2019 12:01
--- NOTE | 2019-01-04 12:03 | PDOCDIS ---
Discharge Instructions CONDITION [id number] Patient Condition: [id number] Stable FOLLOW UP/APPOINTMENTS Follow-up Plan 1. Please follow-up with your primary care physician as soon as possible to discuss your new insulin regimen and to make adjustments as needed 2. please follow-up with your primary care physician in order to get an orthopedic surgery referral, MRI results will be provided 3. Please continue other home medications except for all diabetes medications. DEBBY BRAVO Jan 04, 2019 12:03
== END 2019-01-04 18:23 | disposition home or self-care (01) | DRG 639 ==
LOC: E/R 14:21 → 6WM 18:02
PROVIDERS: ADMIT Internal Medicine; ATTEND Internal Medicine
DX: E11.649 Type 2 diabetes mellitus with hypoglycemia without coma (principal); I95.9 Hypotension, unspecified; E86.0 Dehydration; I10 Essential (primary) hypertension; F32.9 Major depressive disorder, single episode, unspecified; F17.200 Nicotine dependence, unspecified, uncomplicated; M25.562 Pain in left knee; M25.561 Pain in right knee; Z91.81 History of falling; Z79.4 Long term (current) use of insulin
CPT/HCPCS: 36415; 71045; 73721; 80048; 80053; 80061; 81001; 82962; 83036; 83605; 83735; 84100; 84443; 84484; 85025; 85610; 85730; 87040; 87086; 93005; 96374; 97110; 97116; 97161; J1644; J1815

== ENCOUNTER 2019-01-21 11:48 | Emergency (ER) | payer OTHER ==
[~2019-01-21] VITALS: Ht 157.5 cm; Wt 68.7 kg
[~2019-01-21 11:48] MED LIST changes: +ASPI81TA52 PO; -ATOR20TA38 PO; +BENA20TA4 PO; +DULO60CA6 PO; +ERGO2000 PO; +GABA300C16 PO; -GLIM2TAB PO; +GLIP5TAB13 PO; +INSU100I33 SC; +NAPR220C2 PO; +NICO-491 TD; -TRAM50TA2 PO; +TRAZ-150 PO
[2019-01-21 12:05] VITALS: BP 126/50; PULSE 89; RESP 18; Ht 157.5 cm; Wt 68.7 kg
[2019-01-21] MEDS ORDERED: GUAI-95 PO (13:59)
[2019-01-21] MEDS ORDERED: BENZ-6 PO (13:59)
--- NOTE | 2019-01-21 20:52 | ERD ---
ER Documentation Chief Complaint Chief Complaint cough x 2 days HPI Patient is a 58-year-old female with past medical history of hypertension, DM type II, depression, who presents to the ER for concerns of cough times 2 days. Patient states cough is dry in nature. Patient denies fevers or chills. Patient denies any chest pain, shortness of breath, left upper extremity pain, nausea, vomiting or LOC. Patient denies any abdominal pain. Patient does report taking all diabetes medications as prescribed. Patient denied homocidal ideations or suicidal ideations. ROS All systems reviewed and are negative except as per history of present illness. Medications Home Meds Active Scripts Guaifenesin/Dextromethorphan (Diabetic Tussin DM*) 118 Ml Liquid, 5 ML PO Q4H PRN for COUGH, #1 BOTTLE Prov:LAUREEN GIFFORD PA-C 01/21/19 Benzonatate* (Tessalon Perle*) 100 Mg Capsule, 100 MG PO Q8H PRN for COUGH, #20 CAP Prov:LAUREEN GIFFORD PA-C 01/21/19 Naproxen* (Aleve*) 220 Mg Capsule, 220 MG PO BID WITH MEALS, #20 CAP Prov:DEBBY BRAVO 01/04/19 Insulin Glargine,Hum.rec.anlog (Basaglar Kwikpen U-100) 100 Unit/1 Ml Insuln.pen, 15 UNIT SC QPM, #1 EA Prov:DEBBY BRAVO 01/04/19 Glipizide* (Glipizide*) 5 Mg Tablet, 2.5 MG PO AC BREAKFAST DINNER for 30 Days, #15 TAB Prov:DEBBY BRAVO 01/04/19 Reported Medications Nicotine (Nicotine Patch) 1 Each Patch.dysq, 1 EACH TD DAILY 01/01/19 Trazodone Hcl* (Desyrel*) 100 Mg Tab, 100 MG PO QHS, #30 TAB 01/01/19 Duloxetine Hcl* (Cymbalta*) 60 Mg Capsule.dr, 120 MG PO QHS, CAP 01/01/19 Benazepril Hcl* (Benazepril Hcl*) 20 Mg Tablet, 20 MG PO DAILY, #30 TAB 01/01/19 Gabapentin* (Gabapentin*) 300 Mg Capsule, 300 MG PO TID, #90 CAP 01/01/19 Ergocalciferol (Vitamin D2) (VITAMIN D2) 2,000 Unit Tablet, 2000 UNIT PO DAILY, TAB 01/01/19 Aspirin (Low Dose Aspirin) 81 Mg Tablet.dr, 81 MG PO DAILY, #30 TAB 01/01/19 Allergies Allergies: Coded Allergies: No Known Allergy (Unverified , 01/01/19) PMhx/Soc History of Surgery: Yes (C/S X2, Ovarian cyst removal) Anesthesia Reaction: No Hx Neurological Disorder: No Hx Respiratory Disorders: No Hx Cardiac Disorders: Yes (HTN) Hx Psychiatric Problems: Yes (Depression, Anxiety) Hx Miscellaneous Medical Probl: No Hx Alcohol Use: No Hx Substance Use: No FmHx Family History: diabetes; No coronary disease, No other Physical Exam Vitals Vital Signs Date Temp Pulse Resp B/P (MAP) Pulse Ox O2 O2 Flow FiO2 Time Delivery Rate 01/21/19 99.2 89 18 126/50 96 12:05 (75) Physical Exam GENERAL: Well-developed, well-nourished female. Appears in no acute distress. HEAD: Normocephalic, atraumatic. No deformities or ecchymosis. EYE: Pupils equal, round, and reactive to light. EOMs intact. No conjunctival erythema. No eye discharge. ENT: External ear without any masses or tenderness. Auditory canals clear bilaterally. TM visualized bilaterally, non-erythematous, non-bulging. Nasal mucosa pink with no discharge. Oropharynx is pink without any tonsillar erythema or exudates. No uvula deviation. No kissing tonsils. NECK: Supple. No meningismus. Normal ROM of the neck. LUNG: Clear to auscultation bilaterally. No rhonchi, wheezing, rales or coarse breath sounds. HEART: Regular rate and rhythm. No murmurs, rubs or gallops. EXTREMITES: Equal pulses bilaterally. No peripheral clubbing, cyanosis or edema. No unilateral leg swelling. NEUROLOGIC: Alert and oriented to person, place and time. Moving all four extrem ities. 5/5 strength in all extremities. Normal speech. Steady gait. SKIN: Normal color. Warm and dry. No rashes or lesions. Procedures/MDM ED COURSE: The patient was stable throughout ED course. I kept the patient and/or family informed of laboratory and diagnostic imaging results throughout the ED course. DIAGNOSTIC IMAGING: Read by radiologist. DIAGNOSTIC IMAGING REPORT Patient: GUNJAN FIELDS : 1960 Age: 58 Sex: F MR #: [id number] DOS: 01/21/19 1253 Ordering MD: LAUREEN GIFFORD PA-C [facility] Room/Bed: PROCEDURE: XR Chest CLINICAL INDICATION: cough . TECHNIQUE: Frontal view of the chest COMPARISON: DR TREADWELL 01/01/2019 FINDINGS: The cardiomediastinal silhouette is mildly enlarged. There are atherosclerotic calcifications of the aorta. No focal pulmonary consolidations. There is no evidence of significant pleural effusion or pneumothorax. No suspicious osseous lesions. IMPRESSION: No radiographic evidence of acute cardiopulmonary disease. Mild cardiomegaly. RPTAT: HH Feng Martin Physician Date Time Electronically viewed and signed by Feng Martin Physician on 01/21/2019 13:40 HtN/ CC: LAUREEN GIFFORD PA-C MEDICAL DECISION MAKING: This is a 58-year-old female with past medical history of hypertension, DM type II, depression, presents the ER for concerns of cough times 2 days. Patient reports that her cough is dry in nature. Vital signs were reviewed. Patient was afebrile. Patient was not hypoxic. ENT exam was normal. Lung exam was normal. Influenza swab was negative. Chest x-ray was unremarkable. At this time, patient presentation most consistent with viral URI. Low suspicion for ACS, CHF, pneumonia, meningitis, sinusitis, otitis externa, acute otitis media, strep pharyngitis, epiglottitis or peritonsillar abscess. PRESCRIPTIONS: Diabetic Onel Farris DISCHARGE: At this time, patient is stable for discharge and outpatient management. Supp ortive therapies such as OTC throat lozenges, salt water gurgles, popsicles and jello discussed. I have instructed the patient to follow-up with his/her primary care physician in 1-2 days. I have instructed the patient to promptly return to the ER for any new or worsening symptoms including increased pain, swelling, fever, nausea, vomiting, weakness or difficulty breathing. The patient and/or family expressed understanding of and agreement with this plan. All questions were answered. Home care instructions were provided. Disclaimer: Inadvertent spelling and grammatical errors are likely due to EHR/dictation software use and do not reflect on the overall quality of patient care. Also, please note that the electronic time recorded on this note does not necessarily reflect the actual time of the patient encounter. Departure Diagnosis: Primary Impression: URI (upper respiratory infection) URI type: unspecified URI Qualified Codes: J06.9 - Acute upper respiratory infection, unspecified Condition: Fair Patient Instructions: Preventing Common Respiratory Infections Additional Instructions: Call your primary care doctor TOMORROW for an appointment during the next 1-2 days.See the doctor sooner or return here if your condition worsens before your appointment time. LAUREEN GIFFORD PA-C Jan 21, 2019 20:52
== END 2019-01-21 14:10 | disposition home or self-care (01) ==
LOC: FTE 11:48
DX: J06.9 Acute upper respiratory infection, unspecified (principal); I10 Essential (primary) hypertension; E11.9 Type 2 diabetes mellitus without complications; Z79.4 Long term (current) use of insulin; Z79.82 Long term (current) use of aspirin
CPT/HCPCS: 71045; 87400; Z7502

== ENCOUNTER 2019-05-18 15:00 | Emergency (ER) | payer OTHER ==
[~2019-05-18] VITALS: Ht 157.5 cm; Wt 69.1 kg
[~2019-05-18 15:00] MED LIST changes: +ALBU18HF INHALATION; +AZIT500T3 PO; +BENZ-6 PO; +CLOT30CR24 TOP; +GUAI-95 PO
[2019-05-18 15:06] VITALS: BP 130/75; PULSE 90; RESP 18; Ht 157.5 cm; Wt 69.1 kg
--- NOTE | 2019-05-18 17:59 | ERD ---
ER Documentation Chief Complaint Chief Complaint dysuria and pain with sexual intercourse x 1 week HPI This is a 58-year-old [place]-speaking female with history of diabetes presents to the ED complaining of dysuria and vaginal itchiness x1 week. She has a history of vulvovaginal candidiasis and believes today's symptoms are similar. She is sexually active with her longtime partner. No risk of STIs. Denies any back or flank pain. No fevers. No nausea, vomiting. No abdominal pain. No other concerns. ROS All systems reviewed and are negative except as per history of present illness. Medications Home Meds Active Scripts Clotrimazole* (Clotrimazole* AF) 1% - 30 Gm Cream.gm., 1 APPLIC TOP DAILY for 7 Days, TUB Prov:LORRAINE MAYBERRY PA-C 05/18/19 Guaifenesin/Dextromethorphan (Diabetic Tussin DM*) 118 Ml Liquid, 5 ML PO Q4H PRN for COUGH, #1 BOTTLE Prov:LAUREEN GIFFORD PA-C 01/21/19 Benzonatate* (Tessalon Perle*) 100 Mg Capsule, 100 MG PO Q8H PRN for COUGH, #20 CAP Prov:LAUREEN GIFFORD PA-C 01/21/19 Naproxen* (Aleve*) 220 Mg Capsule, 220 MG PO BID WITH MEALS, #20 CAP Prov:DEBBY BRAVO 01/04/19 Insulin Glargine,Hum.rec.anlog (Basaglar Kwikpen U-100) 100 Unit/1 Ml Insuln.pen, 15 UNIT SC QPM, #1 EA Prov:DEBBY BRAVO 01/04/19 Glipizide* (Glipizide*) 5 Mg Tablet, 2.5 MG PO AC BREAKFAST DINNER for 30 Days, #15 TAB Prov:DEBBY BRAVO 01/04/19 Reported Medications Nicotine (Nicotine Patch) 1 Each Patch.dysq, 1 EACH TD DAILY 01/01/19 Trazodone Hcl* (Desyrel*) 100 Mg Tab, 100 MG PO QHS, #30 TAB 01/01/19 Duloxetine Hcl* (Cymbalta*) 60 Mg Capsule.dr, 120 MG PO QHS, CAP 01/01/19 Benazepril Hcl* (Benazepril Hcl*) 20 Mg Tablet, 20 MG PO DAILY, #30 TAB 01/01/19 Gabapentin* (Gabapentin*) 300 Mg Capsule, 300 MG PO TID, #90 CAP 01/01/19 Ergocalciferol (Vitamin D2) (VITAMIN D2) 2,000 Unit Tablet, 2000 UNIT PO DAILY, TAB 01/01/19 Aspirin (Low Dose Aspirin) 81 Mg Tablet.dr, 81 MG PO DAILY, #30 TAB 01/01/19 Allergies Allergies: Coded Allergies: No Known Allergy (Unverified , 01/01/19) PMhx/Soc History of Surgery: Yes (C/S X2, Ovarian cyst removal) Anesthesia Reaction: No Hx Neurological Disorder: No Hx Respiratory Disorders: No Hx Cardiac Disorders: Yes (HTN) Hx Psychiatric Problems: Yes (Depression, Anxiety) Hx Miscellaneous Medical Probl: No Hx Alcohol Use: No Hx Substance Use: No Physical Exam Vitals Vital Signs Date Temp Pulse Resp B/P (MAP) Pulse Ox O2 O2 Flow FiO2 Time Delivery Rate 05/18/19 98.0 90 18 130/75 96 15:06 (93) Physical Exam Const: No acute distress Head: Atraumatic Eyes: Normal Conjunctiva ENT: Normal External Ears, Nose and Mouth. Neck: Full range of motion. No meningismus. Resp: Clear to auscultation bilaterally Cardio: Regular rate and rhythm, no murmurs Abd: Soft, non tender, non distended. Normal bowel sounds Pelvic Exam: Abdomen: Nontender External Genitalia: + Slightly erythematous vulvovaginal area Speculum: Normal vaginal mucosa, normal cervical discharge Bimanual: No adnexal masses or tenderness, No CMT Skin: No petechiae or rashes Back: No midline or flank tenderness Ext: No cyanosis, or edema Neur: Awake and alert Psych: Normal Mood and Affect Results 24 hrs Laboratory Tests Test 05/18/19 16:49 05/18/19 17:09 Urine Color YELLOW Urine Clarity CLEAR Urine pH 5.0 Urine Specific [place] 1.032 Urine Ketones NEGATIVE mg/dL Urine Nitrite NEGATIVE mg/dL Urine Bilirubin NEGATIVE mg/dL Urine Urobilinogen NEGATIVE mg/dL Urine Leukocyte Esterase NEGATIVE Melina/ul Urine Hemoglobin NEGATIVE mg/dL Urine Glucose 3+ mg/dL Urine Total Protein NEGATIVE mg/dl POC Beta HCG, Qualitative NEGATIVE Procedures/MDM LABS & DIAGNOSTIC IMAGING: Urine: no e/o acute infection or hematuria wet mount: neg MEDICAL DECISION MAKING: This is a 58-year-old female with history of diabetes and vulvovaginal infections who presents with dysuria and vaginal itching. UA is negative for infection. Wet mount is also unremarkable. Patient however does have slight erythema or redness around her vulvovaginal area, concerning for a fungal infection. I will therefore treat with topical antifungals. I have low suspicion for PID, STIs, pyelonephritis, or any other emergent process. She was discharged home with copies of her report. She has an appointment with her primary care provider next week. Strict return precautions were discussed. PRESCRIPTIONS: Clotrimazole SPECIALIST FOLLOW UP RECOMMENDED: None Patient has been advised to follow up with primary care in 1-2 days. Departure Diagnosis: Primary Impression: Dysuria Additional Impression: Candidiasis Condition: Stable Patient Instructions: Dysuria Referrals: [facility] (PCP) Additional Instructions: Take copies of your lab report to your primary care appointment next week. Is on need any antibiotics or medications at this time. Return here for any new or worsening symptoms. LORRAINE MAYBERRY PA-C May 18, 2019 17:59
== END 2019-05-18 18:47 | disposition home or self-care (01) ==
LOC: FTE 15:00
DX: B37.3 Candidiasis of vulva and vagina (principal); I10 Essential (primary) hypertension; E11.9 Type 2 diabetes mellitus without complications; Z79.4 Long term (current) use of insulin; Z79.82 Long term (current) use of aspirin
CPT/HCPCS: 81003; 81025; 87210; Z7502; 99284

== ENCOUNTER 2019-06-14 10:13 | Emergency (ER) | payer OTHER ==
[~2019-06-14] VITALS: Ht 160 cm; Wt 67.6 kg
[2019-06-14 10:21] VITALS: Ht 160 cm; Wt 67.6 kg
[2019-06-14] MEDS ORDERED: ALBUTEROL 0.083% (NEB) 2.5 MG/3 ML AMP INH STA (10:43)
[2019-06-14] MEDS ORDERED: IPRATROPIUM (NEB) 0.5 MG/2.5 ML AMP INH STA (10:43)
[2019-06-14] MEDS ORDERED: DEXAMETHASONE 4 MG TAB PO ONE (11:00)
[2019-06-14] MEDS ORDERED: ACETAMINOPHEN 500 MG TAB PO STA (11:34)
[2019-06-14] MEDS ORDERED: ACETAMINOPHEN 325 MG TAB ONE (11:35)
[2019-06-14 11:39] VITALS: BP 136/72; PULSE 79; RESP 18
[2019-06-14] MEDS ORDERED: ACETAMINOPHEN 325 MG TAB PO ONE (12:00)
== END 2019-06-14 11:40 | disposition home or self-care (01) ==
LOC: E/R 10:13
DX: R05 Cough (principal); I10 Essential (primary) hypertension; F17.210 Nicotine dependence, cigarettes, uncomplicated; E11.9 Type 2 diabetes mellitus without complications; Z79.4 Long term (current) use of insulin; Z79.82 Long term (current) use of aspirin
CPT/HCPCS: 71045; 94664; Z7502; Z7610